=== PATIENT | male | born 1960 | race Caucasian/White ===

== ENCOUNTER 2018-04-25 12:14 | Outpatient (CLI) | payer OTHER, SELFPAY ==
--- NOTE | 2018-04-25 12:31 | DI.RAD_ITS ---
SYMPTOM/DIAGNOSIS: PERSISTENT COUGH, R05, BLACK SPUTUM PA AND LATERAL CHEST: Comparison is made with 06/14/15 and 03/30/15. Heart size and pulmonary vasculature are within normal limits. The lungs are clear. The bones are intact. There are again seen surgical clips in the left axilla. IMPRESSION: No acute pulmonary process.
== END 2018-04-25 12:34 ==
PROVIDERS: PCP Internal Medicine; Visit Provider Nurse Practitioner Family
DX: R05 Cough (principal); R09.3 Abnormal sputum
CPT/HCPCS: 71046

== ENCOUNTER 2018-07-04 10:52 | Outpatient (REF) | payer OTHER, SELFPAY ==
[2018-07-04 12:19] LABS: HCT 42.5 % (40.0-50.0); HGB 14.6 g/dL (13.5-17.5); Mean Corp. HGB Concentration 34.4 g/dL (32.0-36.0); Mean Corpuscular Hemoglobin 31.8 pg (27.0-33.0); Mean Corpuscular Volume 92.6 fL (80-95); Mean Platelet Volume 10.9 fL (8.0-11.0); Platelet Count 215 x1000/uL (130-400); RBC 4.59 m/cumm (4.50-6.00); White Blood Cell Count 8.88 k/cumm (4.4-10.8)
[2018-07-04 12:47] LABS: NT-proBNP 5 pg/mL
== END 2018-07-04 11:12 ==
LOC: NCHCN 10:52
PROVIDERS: PCP Internal Medicine; Visit Provider Nurse Practitioner Family
DX: R05 Cough (principal)
CPT/HCPCS: 85027; 83880

== ENCOUNTER 2018-10-03 10:57 | Outpatient (CLI) | payer OTHER, SELFPAY ==
--- NOTE | 2018-10-03 10:55 | DI.RAD_ITS ---
SYMPTOMS/DIAGNOSIS: LT THUMB MASS LEFT THUMB: Soft tissue swelling is noted over the proximal portion of the thumb. An area of soft tissue calcification is noted adjacent to the proximal metaphysis of the distal phalanx and may be related to old trauma. There is no evidence of an acute facture or dislocation. Mild degenerative changes involving the interphalangeal joint are noted as well.
== END 2018-10-03 11:17 ==
PROVIDERS: PCP Internal Medicine; Visit Provider Physician Assistant
DX: M79.645 Pain in left finger(s) (principal); M79.89 Other specified soft tissue disorders; M19.042 Primary osteoarthritis, left hand
CPT/HCPCS: 73140

== ENCOUNTER 2018-11-13 10:05 | Day surgery (SDC) | payer OTHER, SELFPAY ==
[2018-11-13 10:24] VITALS: BP 131/76; PULSE 79; RESP 16; TEMP 36.5; O2SAT 98
--- NOTE | 2018-11-13 12:31 | W.PM.DSUDISC ---
Discharge Plan Disposition Patient Disposition: HOME Condition: Good Discharge Details Reason For Visit: Left Thumb Cyst Attending Provider: Guillermo Garcia Primary Care Provider: Shyam Crespo Meds and New Rx's Prescriptions: New acetaminophen 500 mg tablet 1,000 mg PO Q8H PRN (Reason: pain) Qty: 60 RF: 3 ibuprofen 600 mg tablet 600 mg PO TID PRNQty: 60 RF: 3 Continued citalopram 20 MG tablet 20 mg PO DAILY RF: 0 albuterol sulfate [ProAir HFA] 8.5 GM HFA aerosol inhaler 2 puff Inhalation Q4H PRN PRNQty: 1 RF: 0 (DME) Aerogear Action Asthma Kit 1 EACH kit 1 ea Miscellaneous Q4H WHILE AWAKE Qty: 1 RF: 0 Discontinued ibuprofen 800 MG tablet 800 mg PO TID Qty: 30 RF: 0 Discharge Instructions Additional Instructions: Activity: You may use your fingers for light activity but avoid overusing the left thumb. You should limit any excessive motion or forceful gripping until the sutures have been removed. Dressings: You should keep the initial surgical dressing in place for at least 2-3 days. You may remove your dressings and get the wound wet after 2 days. You should keep the dressings and the wound clean at all times. You may replace the dressing with bandaid. Medications: - You should take Tylenol and Ibuprofen around the clock as prescribed or per netbackup engineer's recommendations. Follow-up: 7-10 days for wound check and suture removal. Referrals: Guillermo Garcia MD [ [facility] STAFF PHYSICIAN] - Activity:: Elevate Remove Dressings/Wound Care:: 48 hours Shower/Bathe:: 48 hours Diet:: As Tolerated Discharge Orders Discharge Orders: Discharge Order (Routine); Ordered 11/13/18 Ordered By: Guillermo Garcia DS: Diagnosis Discharge Diagnosis (1) Subcutaneous mass of left thumb: Status: Chronic
[2018-11-13] MEDS: Lidocaine 1% Pres-Free 5 ML VIAL (13:05)
--- NOTE | 2018-11-14 05:21 | W.PM.OP ---
Date of service: 11/13/18 Time of Service: 12:21 Operative Note DATE OF PROCEDURE: 11/13/18 PRE-OP DIAGNOSIS: Left thumb mass POST-OP DIAGNOSIS: other (Left thumb cyst) PROCEDURE: Excision of left thumb cyst SURGEON: Guillermo Garcia ANESTHESIA: local PATHOLOGY: none sent COMPLICATIONS: None Patient was transported to: same day Patient's condition: stable Indications: I have seen Kody in clinic for symptoms of a likely thumb cyst. The symptoms had not responded to conservative measures. I discussed excision with the patient. I reviewed the risks of the procedure to include, but not limited to, bleeding, infection, pain, stiffness, damage to nerves or vessels, recurrence. Despite these risks, the patient elected to proceed. Findings: There is a small cystic structure seen overlying the DIP joint of the left thumb. The cyst sac was removed and the arthrotomy was performed. Procedure Description: Timmy was greeted in the preoperative holding area where the correct side was identified and marked. The consent was reviewed with the patient and signed. All questions were answered. Kody was taken back to the operating room. The patient was placed into the supine position on the operating room table with the left arm on an arm board. All bony prominences were well padded. No prophylactic antibiotics were administered since this was a clean, elective hand surgical case. The left arm was then prepped with Chloraprep and draped in a standard fashion with stockinette and extremity drape. A timeout to confirm correct identity, side and site, procedure, allergies, anesthesia, and medical concerns was performed. The surgical site was marked as a longitudinal incision directly over the cyst of the left thumb, dorsal radial aspect of the DIP joint. A digital block was then performed with 1% Lidocaine. The patient tolerated this well and once the anesthetic had setup, the procedure began. A longitudinal incision was made through skin only, approximately 1cm. The deep tissues were dissected bluntly. There is notable thickening around this area. The area of prominence was identified and the deeper tissues were dissected sharply to expose the cystic structure. It ruptured fairly early and the cyst sac was identified and removed and whole. This was in direct communication with the radial aspect of the DIP joint. Capsule around the DIP joint was then opened. There was notable soft tissue thickening around the joint itself. There is also some prominence of the distal phalanx of middle phalanx in this area. A rondure was used to remove any soft tissue thickening. The wound was then irrigated and the skin was closed with a 4-0 Nylon. This was dressed with gauze and a Conform dressing. The patient tolerated the procedure well and was returned to the Same Day Surgery area in a stable condition suffering no known complication.
== END 2018-11-13 13:03 | disposition home or self-care (01) ==
PROVIDERS: PCP Internal Medicine; Visit Provider Student in an Organized Health Care Education/Training Program
PROC: (CPT 26160; principal; 2018-11-13 11:45)
DX: R22.32 Localized swelling, mass and lump, left upper limb (principal); M25.842 Other specified joint disorders, left hand
CPT/HCPCS: 26160

== ENCOUNTER 2020-02-06 12:34 | Outpatient (REF) | payer OTHER, SELFPAY ==
[2020-02-06 21:02] LABS: Calculated LDL 113 mg/dL (<100); Cholesterol 192 mg/dL (<200); HDL Cholesterol 61 mg/dL (40-60); Triglyceride 92 mg/dL (<150)
== END 2020-02-06 12:54 ==
LOC: NCHCN 12:34
PROVIDERS: PCP Internal Medicine; Visit Provider Internal Medicine
DX: Z00.00 Encounter for general adult medical examination without abnormal findings (principal); E66.3 Overweight
CPT/HCPCS: 80061

== ENCOUNTER 2020-07-17 11:02 | Outpatient (CLI) | payer OTHER, SELFPAY ==
--- NOTE | 2020-07-17 09:45 | DI.RAD_ITS ---
EXAM: XR THUMB LT CLINICAL HISTORY: left thumb cyst TECHNIQUE: COMPARISON: CR XR thumb LT from 10/03/2018 FINDINGS: Three views were obtained. Calcific or ossific densities are again noted adjacent to the radial aspe ct of the base of the distal phalanx of the thumb and are more prominent than on prior examination of October 03, 2018. Cartilaginous joint spaces appear fairly well maintained. Mild to moderate marginal osteophytes noted most marked at the IP joint but also to a lesser degree involving the 1st MCP join t. IMPRESSION: Degenerative changes as described above. RADIATION DOSE DELIVERED: Total DLP
== END 2020-07-17 11:03 | disposition home or self-care (01) ==
LOC: DIORS 11:03
PROVIDERS: PCP Internal Medicine; Referring Provider Internal Medicine; Visit Provider Physician Assistant
DX: M18.12 Unilateral primary osteoarthritis of first carpometacarpal joint, left hand (principal)
CPT/HCPCS: 73140

== ENCOUNTER 2020-07-17 12:00 | Outpatient (REF) | payer OTHER, SELFPAY ==
[2020-07-17 20:02] LABS: Anion Gap 8.5 mmol/L (3-11); BUN 14 mg/dL (7-18); CO2 27.5 mmol/L (21.0-32.0); CREATININE 0.9 mg/dL (0.70-1.30); Chloride 105 mmol/L (98-107); Glucose 96 mg/dL (74-106); Potassium 4.6 mmol/L (3.5-5.1); Sodium 141 mmol/L (136-145)
== END 2020-07-17 12:01 | disposition home or self-care (01) ==
LOC: NCHCN 12:00
PROVIDERS: PCP Internal Medicine; Visit Provider Internal Medicine
DX: I10 Essential (primary) hypertension (principal)
CPT/HCPCS: 80048

== ENCOUNTER 2020-07-23 18:27 | Outpatient (REF) | payer OTHER, SELFPAY ==
[2020-07-23 17:45] LABS: Bilirubin Negative (Negative); Blood Negative (Negative); Clarity Clear (Clear); Glucose Negative (Negative); Ketones Negative (Negative); Leukocyte Esterase Negative (Negative); Nitrite Negative (Negative); Specific Gravity >= 1.030 (1.005-1.025); Urobilinogen 0.2 EU/dL (Up TO 0.2); pH 6.5 (5-8)
== END 2020-07-23 18:28 | disposition home or self-care (01) ==
LOC: NCHCN 18:27
PROVIDERS: PCP Internal Medicine; Referring Provider Internal Medicine; Visit Provider Internal Medicine
DX: I10 Essential (primary) hypertension (principal)
CPT/HCPCS: 81003

== ENCOUNTER 2020-07-29 08:53 | Day surgery (SDC) | payer OTHER, SELFPAY ==
[2020-07-29 09:30] VITALS: BP 149/102; PULSE 76; RESP 16; TEMP 36.4; O2SAT 96
--- NOTE | 2020-07-29 09:52 | W.PM.DSUDISC ---
Documented by User: YASH Herron 07/29/20 10:02 Discharge Plan Disposition Patient Disposition: HOME Condition: Good Discharge Details Reason For Visit: Left Thumb Distal Phalanx Ostectomy Attending Provider: Guillermo Garcia Primary Care Provider: Shyam Crespo Home Meds and New Rx's Prescriptions: New hydrocodone-acetaminophen 5-325 mg tablet 1 tab PO Q6H PRNQty: 5 RF: 0 Continued citalopram 20 MG tablet 20 mg PO DAILY RF: 0 albuterol sulfate [ProAir HFA] 8.5 GM HFA aerosol inhaler 2 puff Inhalation Q4H PRN PRNQty: 1 RF: 0 (DME) [employer] Action Asthma Kit 1 EACH kit 1 ea Miscellaneous Q4H WHILE AWAKE Qty: 1 RF: 0 acetaminophen 500 mg tablet 1,000 mg PO Q8H PRN (Reason: pain) Qty: 60 RF: 3 ibuprofen 600 mg tablet 600 mg PO TID PRNQty: 60 RF: 3 Discharge Instructions Additional Instructions: Discharge Instructions Activity: You should keep the hand/wrist elevated as much as possible for the first few days. You may use the other fingers as tolerated but avoid trying to do too much too soon. You may perform light activities with thumb but try not to do too much too soon. Dressing/Cast: Your initial dressing should stay on for 2 days. During this time, pleae keep it clean and dry. After 48 hours you may remove the dressing, cover with a bandaid and get it wet/shower as needed. Medications: - You should take Tylenol and Ibuprofen for baseline pain control. These have been called into the pharmacy. - You have been prescribed a stronger pain medication, Hydrocodone, for breakthrough pain. You do not have to fill this but it is at the pharmacy in case you need it. - You may apply ice over the thumb, just double bag so it doesn't get wet. Follow-up: 7-10 days Referrals: Guillermo Garcia MD [ [facility] STAFF PHYSICIAN] - Equipment/Supplies: Splint Activity:: Activity as Tolerated Remove Dressings/Wound Care:: 48 hours Shower/Bathe:: 48 hours Diet:: As Tolerated Discharge Orders Discharge Orders: Discharge Order (Routine); Ordered 07/29/20 Ordered By: Megan Montoya DS: Diagnosis Discharge Diagnosis (1) Subcutaneous mass of left thumb: Status: Chronic (2) Osteophyte, left hand: Status: Acute Documented by User: Guillermo Garcia MD 07/29/20 10:13 Discharge Plan Disposition Patient Disposition: HOME Condition: Good Discharge Details Reason For Visit: Left Thumb Distal Phalanx Ostectomy Attending Provider: Guillermo Garcia Primary Care Provider: Shyam Crespo Home Meds and New Rx's Prescriptions: New hydrocodone-acetaminophen 5-325 mg tablet 1 tab PO Q6H PRNQty: 5 RF: 0 Continued citalopram 20 MG tablet 20 mg PO DAILY RF: 0 albuterol sulfate [ProAir HFA] 8.5 GM HFA aerosol inhaler 2 puff Inhalation Q4H PRN PRNQty: 1 RF: 0 (DME) [employer] Action Asthma Kit 1 EACH kit 1 ea Miscellaneous Q4H WHILE AWAKE Qty: 1 RF: 0 acetaminophen 500 mg tablet 1,000 mg PO Q8H PRN (Reason: pain) Qty: 60 RF: 3 ibuprofen 600 mg tablet 600 mg PO TID PRNQty: 60 RF: 3 Discharge Instructions Additional Instructions: Discharge Instructions Activity: You should keep the hand/wrist elevated as much as possible for the first few days. You may use the other fingers as tolerated but avoid trying to do too much too soon. You may perform light activities with thumb but try not to do too much too soon. Dressing/Cast: Your initial dressing should stay on for 2 days. During this time, pleae keep it clean and dry. After 48 hours you may remove the dressing, cover with a bandaid and get it wet/shower as needed. Medications: - You should take Tylenol and Ibuprofen for baseline pain control. These have been called into the pharmacy. - You have been prescribed a stronger pain medication, Hydrocodone, for breakthrough pain. You do not have to fill this but it is at the pharmacy in case you need it. - You may apply ice over the thumb, just double bag so it doesn't get wet. Follow-up: 7-10 days Referrals: Guillermo Garcia MD [ [facility] STAFF PHYSICIAN] - Equipment/Supplies: Splint Activity:: Activity as Tolerated Remove Dressings/Wound Care:: 48 hours Shower/Bathe:: 48 hours Diet:: As Tolerated Discharge Orders Discharge Orders: Discharge Order (Routine); Ordered 07/29/20 Ordered By: Megan Montoya
--- NOTE | 2020-07-29 10:00 | DI.RAD_ITS ---
EXAM: XR THUMB LT CLINICAL HISTORY: subcutaneous mass left thumb. TECHNIQUE: 2D digital imaging was performed. COMPARISON: No exams were available for comparison FINDINGS: Prosperous provided during left thumb procedure. Total fluoroscopy time 12 seconds IMPRESSION: DATA REPOSITORY: RADIATION DOSE DELIVERED:
[2020-07-29] MEDS: Sodium Bicarbonate 50 MEQ/50 ML VIAL (10:35)
--- NOTE | 2020-07-29 12:27 | W.PM.OP ---
Date of service: 07/29/20 Time of Service: 11:27 Operative Note Operative Note DATE OF PROCEDURE: 07/29/20 PRE-OP DIAGNOSIS: Left Thumb Cyst and Osteophyte POST-OP DIAGNOSIS: same PROCEDURE: Excision of left thumb mucous cyst and ostectomy from proximal and distal phalanges SURGEON: Guillermo Garcia NUCLEAR OPERATOR: Megan Montoya ANESTHESIA TYPE: Local By Surgeon Refer to Anesthesia Record ESTIMATED BLOOD LOSS: 5 PATHOLOGY: none sent TOURNIQUET TIME: 0 COMPLICATIONS: None Patient was transported to: same day Patient's condition: stable Indications: Kody is a 60-year-old who had a previous mucous cyst of the left thumb DIP joint. This returned with a notable prominence over the past months to year. X-rays performed at his clinic visit showed a large osteophyte of the distal phalanx as well as the proximal phalanx. There also was felt to be a small cyst. Given the prominence of this area and his pain, I recommended excision with ostectomy. I reviewed the risk of the procedure to include bleeding, infection, pain, stiffness, recurrence. Spite these risk, he elects to proceed. Findings: There were large osteophytes seen from the base of the distal phalanx and smaller around the end of the proximal phalanx. These were removed sharply. There is also a small mucous cyst at the level of the DIP joint. Procedure Description: Kody was greeted in the preoperative holding area. His identity was confirmed the correct side was identified and marked. The consent was reviewed the patient and signed. He was then taken back to the operating room. He is placed in supine position with the left hand placed on a hand table. The left hand was prepped with ChloraPrep and draped in a standard fashion. A timeout was performed for safe surgery. A longitudinal incision was made overlying the radial aspect of the thumb DIP joint. The incision was taken out sharply through the skin. Immediately, a small mucous cyst was encountered. There is approximately 2 x 2 mm. It was removed and dissection is carried down to identify the capsule of the IP joint. Longitudinal incision of the capsule was made and this was subperiosteally elevated off of the bone spurs from the distal phalanx moving both dorsally and ulnarly as well as radially. There is a large spur seen from the base of the distal phalanx. 1 of these was actually somewhat loose. These were removed with a rongeur. I continue to remove any bone spurs from the base of the distal phalanx. I then dissected around the end of the middle phalanx to remove any bone spurs in this area as well. Mini C-arm fluoroscopy was utilized to help guide resection to make sure that we had adequate resected the bone. The area of concern was significantly improved. There still was some irregularity to the DIP joint service. However, I do not want to proceed with dissection circumferentially around the thumb and focus primarily on this area of concern. I used a rasp to also smooth the edges down so there is a smooth contour to the DIP joint. The wound was then thoroughly irrigated. The joint capsule was left open and the skin was closed with a #4-0 nylon suture. Kody was able to extend the thumb without difficulty. The wound was then dressed with Xeroform, 4 x 4's, conform dressing. At the end the case all counts are correct. He is transferred back to the same-day surgery in stable condition.
== END 2020-07-29 11:19 | disposition home or self-care (01) ==
PROVIDERS: PCP Internal Medicine; Referring Provider Student in an Organized Health Care Education/Training Program; Visit Provider Student in an Organized Health Care Education/Training Program
PROC: (CPT 26951; principal; 2020-07-29 11:30)
DX: M25.742 Osteophyte, left hand (principal); L72.8 Other follicular cysts of the skin and subcutaneous tissue
CPT/HCPCS: 11420; 26210; 73140

== ENCOUNTER 2020-11-12 17:02 | Outpatient (REF) | payer OTHER, SELFPAY ==
[2020-11-12 21:22] LABS: Anion Gap 10.3 mmol/L (3-11); BUN 17 mg/dL (7-18); CO2 25.7 mmol/L (21.0-32.0); Calcium 9.2 mg/dL (8.5-10.1); Chloride 104 mmol/L (98-107); Glucose 120 mg/dL (74-106); Potassium 3.7 mmol/L (3.5-5.1); Sodium 140 mmol/L (136-145)
== END 2020-11-12 17:03 | disposition home or self-care (01) ==
LOC: NCHCN 17:02
PROVIDERS: PCP Internal Medicine; Visit Provider Internal Medicine
DX: I10 Essential (primary) hypertension (principal)
CPT/HCPCS: 80048

== ENCOUNTER 2020-12-03 01:12 | Outpatient (CLI) | payer OTHER, SELFPAY ==
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
== END 2020-12-03 01:32 ==
PROVIDERS: PCP Internal Medicine; Visit Provider Family Medicine
DX: M79.604 Pain in right leg (principal); M89.8X6 Other specified disorders of bone, lower leg; Z87.81 Personal history of (healed) traumatic fracture; Z96.698 Presence of other orthopedic joint implants
CPT/HCPCS: 73590

== ENCOUNTER 2020-12-10 12:04 | Outpatient (CLI) | payer OTHER, SELFPAY ==
--- NOTE | 2020-12-10 11:45 | DI.RAD_ITS ---
Exam(s) XR ANKLE RT COMPLETE EXAM: XR ANKLE RT COMPLETE CLINICAL HISTORY: RIGHT ANKLE PAIN. TECHNIQUE: 2D digital imaging was performed. COMPARISON: CR XR TIB/FIB RT from 12/03/2020 CR XR TIB/FIB RT from 12/03/2020 FINDINGS: There is a long intramedullary mary in the tibia which extends down to the distal metaphysis level. T his transfixes a fracture site of the tibia which is above the level of the field of view of this ank le study. No radiographic evidence of osteomyelitis. There is a healed fracture site at the junctio n of the mid and distal thirds of the fibula. Moderate degenerative changes are noted in the tibiota lar-ankle joint. Talar dome appears intact. Subtalar joint appears unremarkable as does the calcane ocuboid joint. Some degenerative changes are noted of the dorsal aspect of the talonavicular joint. IMPRESSION: DATA REPOSITORY: RADIATION DOSE DELIVERED:
== END 2020-12-10 12:05 | disposition home or self-care (01) ==
LOC: DIORS 12:04
PROVIDERS: PCP Internal Medicine; Referring Provider Internal Medicine; Visit Provider Student in an Organized Health Care Education/Training Program
DX: M25.571 Pain in right ankle and joints of right foot (principal)
CPT/HCPCS: 73610

== ENCOUNTER 2021-03-08 09:45 | Outpatient (CLI) | payer OTHER, SELFPAY ==
--- NOTE | 2021-03-08 09:30 | DI.RAD_ITS ---
Exam(s) XR KNEE LT 3V AP,LAT,KAVIN EXAM: XR KNEE LT 3V AP,LAT,KAVIN CLINICAL HISTORY: left knee pain. TECHNIQUE: 2D digital imaging was performed. COMPARISON: No exams were available for comparison FINDINGS: BONES: No acute fracture is present. No bony destructive lesion is seen. Small enthesophyte superi or pole patella. JOINTS: Moderate narrowing medial femoral tibial joint with periarticular spurring.. Minimal spurrin g at the articular aspect of the patella. No joint effusion is seen. SOFT TISSUE: Surgical clips posterior upper calf. IMPRESSION: Moderate degenerative changes of the medial femoral tibial joint. DATA REPOSITORY: RADIATION DOSE DELIVERED:
== END 2021-03-08 09:46 | disposition home or self-care (01) ==
LOC: DIORS 09:45
PROVIDERS: PCP Internal Medicine; Referring Provider Internal Medicine; Visit Provider Physician Assistant
DX: M25.562 Pain in left knee (principal)
CPT/HCPCS: 73562

== ENCOUNTER 2021-08-22 19:50 | Emergency (ER) | payer OTHER, SELFPAY ==
[2021-08-22 20:00] VITALS: BP 149/97; PULSE 68; RESP 19; TEMP 36.4; O2SAT 98
[2021-08-22 20:14] VITALS: RESP 19
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
[2021-08-22 20:23] VITALS: PULSE 65; RESP 1; RESP 18; O2SAT 98
[2021-08-22] MEDS: Dexamethasone 10 MG/ML VIAL IVP (20:23)
[2021-08-22] MEDS: Albuterol/Ipratropium 3 ML UPD VIAL 9 ML UPD (20:23)
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
[2021-08-22 21:35] VITALS: BP 141/78; PULSE 61; RESP 18; O2SAT 99
[2021-08-24 14:32] LABS: COVID-19 RT-PCR UVMMC Result Positive (Negative)
--- NOTE | 2021-08-24 14:37 | W.ED.FU ---
Date of service: 08/24/21 Time of Service: 14:37 Follow Up Plan: Left message for patient regarding positive COVID test
== END 2021-08-22 21:32 | disposition home or self-care (01) ==
PROVIDERS: Emergency Provider Emergency Medicine; PCP Internal Medicine
DX: U07.1 COVID-19 (principal); J45.998 Other asthma; Z20.822 Contact with and (suspected) exposure to COVID-19; R05.1 Acute cough; X03.8XXA Other exposure to controlled fire, not in building or structure, initial encounter
CPT/HCPCS: 94640; 96374; 99283; U0003; 71045; J1100; J7620

== ENCOUNTER 2021-09-18 10:54 | Emergency (ER) | payer OTHER, SELFPAY ==
[2021-09-18 10:59] VITALS: BP 145/83; PULSE 81; RESP 18; TEMP 37.1; O2SAT 96
--- NOTE | 2021-09-18 11:00 | DI.RAD_ITS ---
Exam(s) XR HAND LT COMPLETE EXAM: XR HAND LT COMPLETE CLINICAL HISTORY: pain puncture wound. TECHNIQUE: 2D digital imaging was performed. COMPARISON: CR XR THUMB LT from 07/17/2020 FINDINGS: 3 views No evidence of acute fracture nor dislocation. Degenerative changes again noted at the interphalange al joint of the thumb. IMPRESSION: No acute osseous findings in the left hand DATA REPOSITORY: RADIATION DOSE DELIVERED:
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
--- NOTE | 2021-09-18 11:53 | DI.VRAD_ITS ---
PROCEDURE INFORMATION: Exam: XR Left Hand Exam date and time: 09/18/2021 11:34 AM Age: 61 years old Clinical indication: Pain; Hand; Left; Patient HX: Puncture wound TECHNIQUE: Imaging protocol: XR Left hand. Views: 3 or more views. COMPARISON: CR XR THUMB LT 07/17/2020 FINDINGS: Bones/joints: No acute fracture or dislocation. Mild arthritic changes at 1st MCP and multiple interphalangeal joints. Soft tissues: No obvious soft tissue injury or gas. IMPRESSION: No obvious soft tissue injury. No acute osseous injury. Dictated and Authenticated by: Ashlyn Vaughn MD. Ordering:ELVIRA Pringle MD
[2021-09-18] MEDS: Cephalexin 500 MG CAP PO (11:56)
[2021-09-18] MEDS: Acetaminophen 500 MG TAB 1000 MG PO (11:56)
== END 2021-09-18 12:07 | disposition home or self-care (01) ==
PROVIDERS: Emergency Provider Emergency Medicine; PCP Internal Medicine
DX: S61.432A Puncture wound without foreign body of left hand, initial encounter (principal); W29.8XXA Contact with other powered hand tools and household machinery, initial encounter
CPT/HCPCS: 90471; 99284; 73130; 99283

== ENCOUNTER 2021-11-19 17:25 | Outpatient (REF) | payer OTHER, SELFPAY ==
[2021-11-19 20:39] LABS: ALT 30 U/L (16-63); AST 21 U/L (15-37); Albumin 3.9 g/dL (3.4-5.0); Alkaline Phosphatase 87 U/L (46-116); Anion Gap 7.2 mmol/L (3-11); BUN 20 mg/dL (7-18); Bilirubin, Total 0.5 mg/dL (0.2-1.0); CO2 26.8 mmol/L (21.0-32.0); Calcium 8.9 mg/dL (8.5-10.1); Chloride 106 mmol/L (98-107); Glucose 112 mg/dL (74-106); Potassium 3.9 mmol/L (3.5-5.1); Sodium 140 mmol/L (136-145); Total Protein 7.7 g/dL (6.4-8.2)
== END 2021-11-19 17:26 | disposition home or self-care (01) ==
LOC: NCHCN 17:25
PROVIDERS: PCP Internal Medicine; Visit Provider Family Medicine
DX: R07.9 Chest pain, unspecified (principal)
CPT/HCPCS: 80053; 85025

== ENCOUNTER 2021-11-26 15:00 | Outpatient (REF) | payer OTHER, SELFPAY ==
[2021-11-26 15:33] LABS: HCT 40.6 % (40.0-50.0); HGB 14.2 g/dL (13.5-17.5); MCH 32.6 pg (27.0-33.0); MCV 93 fL (80-95); Platelet Count 209 10^3/uL (130-400); RBC 4.36 10^6/uL (4.36-5.78); RDW 12.3 % (11.8-14.1); RDW-SD 42.4 fL; WBC 7.79 10^3/uL (4.4-10.8)
== END 2021-11-26 15:01 | disposition home or self-care (01) ==
LOC: NCHCN 15:00
PROVIDERS: PCP Internal Medicine; Visit Provider Family Medicine
DX: I10 Essential (primary) hypertension (principal); R07.9 Chest pain, unspecified
CPT/HCPCS: 85027

== ENCOUNTER 2022-04-21 18:50 | Emergency (ER) | payer OTHER, SELFPAY ==
[2022-04-21 19:09] VITALS: PULSE 110; RESP 16; TEMP 37.1; O2SAT 98
[2022-04-21 20:06] LABS: COVID-19 PCR Negative (Negative); Influenza A PCR Negative (Negative); Influenza B PCR Negative (Negative); RSV PCR Negative (Negative)
[2022-04-21 20:07] LABS: Source Nasopharynx
--- NOTE | 2022-04-21 20:15 | DI.RAD_ITS ---
Exam(s) XR CHEST 2V PA LATERAL EXAM: XR CHEST 2V PA LATERAL CLINICAL HISTORY: short of breath TECHNIQUE: 2D digital imaging was performed. COMPARISON: CR,XR XR PORTABLE CHEST AP from 08/22/2021 FINDINGS: HEART: Normal size. Aorta: Not dilated. PULMONARY VASCULATURE: Normal. LUNGS: Clear. PLEURAL SPACE: No pleural effusion or pneumothorax. BONE:Unremarkable for age. Soft tissues: Multiple surgical clips noted over the left axilla and lateral chest. IMPRESSION: No acute abnormality. DATA REPOSITORY: RADIATION DOSE DELIVERED:
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
--- NOTE | 2022-04-21 21:03 | DI.VRAD_ITS ---
PROCEDURE INFORMATION: Exam: XR Chest Exam date and time: 04/21/2022 8:25 PM Age: 61 years old Clinical indication: Shortness of breath TECHNIQUE: Imaging protocol: Radiologic exam of the chest. Views: 2 views. COMPARISON: XR PORTABLE CHEST AP 08/22/2021 8:42 PM FINDINGS: Lungs: Unremarkable. No consolidation. Pleural spaces: Unremarkable. No pleural effusion. No pneumothorax. Heart/Mediastinum: Mildly tortuous aorta. No cardiomegaly. Bones/joints: Unremarkable. Surgical clips in the left axilla IMPRESSION: No acute findings. Dictated and Authenticated by: Trev Sandoval MD. Ordering:MICHAEL Castellon MD
[2022-04-21 21:05] VITALS: BP 143/95; PULSE 78; RESP 16; O2SAT 98
== END 2022-04-21 21:04 | disposition home or self-care (01) ==
PROVIDERS: Emergency Provider Student in an Organized Health Care Education/Training Program; PCP Family Medicine
DX: B34.9 Viral infection, unspecified (principal); R00.0 Tachycardia, unspecified; J45.909 Unspecified asthma, uncomplicated; Z79.899 Other long term (current) drug therapy; Z20.822 Contact with and (suspected) exposure to COVID-19
CPT/HCPCS: 87637; 99283; 71046; 99282

== ENCOUNTER 2022-08-24 17:25 | Outpatient (REF) | payer OTHER, SELFPAY ==
[2022-08-24 21:27] LABS: Anion Gap 11.8 mmol/L (3-11); BUN 17 mg/dL (7-18); CO2 25.2 mmol/L (21.0-32.0); Calcium 9.3 mg/dL (8.5-10.1); Chloride 101 mmol/L (98-107); Estimated GFR 84.05 (mL/min/1.73m2); Glucose 81 mg/dL (74-106); Sodium 138 mmol/L (136-145)
== END 2022-08-24 17:26 | disposition home or self-care (01) ==
LOC: NCHCN 17:25
PROVIDERS: PCP Family Medicine; Visit Provider Family Medicine
DX: Z00.00 Encounter for general adult medical examination without abnormal findings (principal); I10 Essential (primary) hypertension
CPT/HCPCS: 80048

== ENCOUNTER → 2023-11-01 02:31 | Outpatient (CLI) | payer OTHER, SELFPAY ==
--- OUTSIDE RECORDS SUMMARY | 2023-10-30 02:09 | XMS_ITS | Encounter Summary ---
Author Organization [facility] Address [facility] [place] [address] Care Team Providers Care Automatic Blocker Name Role Phone Shyam Crespo MD Primary Care Provider [phone] Encounter Details Date Type Department Care Team (Late st Contact Info) Description 10/11/2019 1:30 PM EDT TH Visit (TeleHealth) Plastic Surgery at [facility] [place] [address] Malia Monroe MD [facility] [place] [address] Surgery follow-up Social History Tobacco Use Types Packs/Day Years Used Date Smoking Tobacco: Former Smokeless Tobacco: Never Sex and Gender Information Value Date Recorded Sex Assigned at Not on file Gender Identity Not on file Sexual Orientation Not on file documented as of this encounter Progress Notes * Malia Monroe MD - 10/11/2019 1:30 PM EDT Plastic Surgery Telephone Follow-up Note Malia Monroe MD. This visit was a telephone encounter as the telehealth interface wasn't functioning correctly at the time of his scheduled visit Reason for visit: F/U status post procedure Date of surgery: 09/12/19 Procedure(s): repair laceration of L 5th digit Complications: None reported HPI: Pt states he is doing well overall. He states his skin incisions are healing well. He has somenew skin growth over his initial injury site. He states he still his some swelling in his finger, but it is improved from his last visit. He is working on ROM at home and notices improvement. He is eager to return to work. Examination: Deferred as this was a telephone encounter Impression: Kody Carr is a 59 y.o. male who was seen today for follow-up after the above procedure. Please see the operative note for details. He is doing well without complaints and slowly progressing Plan: Follow up: prn Letter faxed to his workplace to return to work Friday 10/13 D/w patient following up with any concerns or to call us if he would like to initiate hand therapy I, Allison Heath, have performed the documentation for this encounter in the presence of and acting as a scribe for MALIA MONROE. I performed the services which were documented by the scribe, and I agree with the accuracy of the documentation in this encounter. Malia Monroe MD documented in this encounter Plan of Treatment Not on file documented as of this encounter Visit Diagnoses Diagnosis Surgery follow-up Follow-up examination, following unspecified surgery documented in this encounter Care Teams Automatic Blocker Relationship Specialty Start Date End Date Shyam Crespo MD [address] [place] [id number] PCP - General Internal Medicine 09/06/19 documented as of this encounter
--- OUTSIDE RECORDS SUMMARY | 2023-10-30 02:09 | XMS_ITS | Referral Summary ---
Author Organization [facility] Address [address] [place] [address] Care Team Providers Care Cdl Service Technician Name Role Phone Shyam Crespo MD Primary Care Provider [phone] Social History Tobacco Use Types Packs/Day Years Used Date Smoking Tobacco: Never Assessed Interpersonal Safety Answer Date Record ed Physically Hurt Never 11/18/2019 Verbally Threaten Not on file 11/18/2019 Sex and Gender Information Value Date Recorded Sex Assigned at Not on file Gender Identity Not on file Sexual Orientation Not on file Plan of Treatment Not on file Care Teams Cdl Service Technician Relationship Specialty Start Date End Date Shyam Crespo MD [address] [place], [place] [id number] PCP - General 11/21/16
--- OUTSIDE RECORDS SUMMARY | 2023-10-30 02:09 | XMS_ITS | Encounter Summary ---
Author Organization [facility] Address [address] [place] [address] Care Team Providers Care Building Economist Name Role Phone Shyam Crespo MD Primary Care Provider [phone] Encounter Details Date Type Department Care Team (Late st Contact Info) Description 08/23/2021 Lab Requisition [facility] Pathology & Laboratory Medicine - [address] [address] Outr Resulting Lab, Provider Social History Tobacco Use Types Packs/Day Years Used Date Smoking Tobacco: Never Assessed Interpersonal Safety Answer Date Record ed Physically Hurt Never 11/18/2019 Verbally Threaten Not on file 11/18/2019 Sex and Gender Information Value Date Recorded Sex Assigned at Not on file Gender Identity Not on file Sexual Orientation Not on file documented as of this encounter Plan of Treatment Not on file documented as of this encounter Procedures Procedure Name Priority Date/Time Associated Diagnosis Comments ZZCOVID-19 TEST [facility] PCR Today 08/22/2021 20:19 EDT COVID-19 TESTING Routine 08/22/2021 20:1 9 EDT documented in this encounter Results * COVID-19 TEST [facility] PCR (08/22/2021 20:19 EDT) Swab 08/22/2021 20:1 9 EDT 08/23/2021 17:19 EDT Provider Outr Resulting Lab MICROBIOLOGY - GENERAL ORDERABLES [facility] [address] [place] [address] * (ABNORMAL) COVID-19 TESTING (08/22/2021 20:19 EDT) COVID-19 rt-PCR Result Positive( AA) Negative 08/24/2021 13:24 EDT [facility] Comment: This test has not been FDA cleared or approved. This test has been authorized by FDA under an EUA for use by authorized laboratories. This test has been authorized only for detection of nucleic acid from 2019-nCoV, not for any other viruses or pathogens. This test is only authorized for the duration of the declaration that circumstances exist justifying the authorization of emergency use of in vitro diagnostic tests for detection and/or diagnosis of 2019-nCoV under section 564(b)(1) of Act, 21 U.S.C ?? 360bbb-3(b) (1), unless the authorization is terminated or revoked sooner. Testing was performed using the venancio SARS-CoV-2 assay ([employer] on the Venancio 6800 System Performing Lab Venancio [address] [facility] 08/24/2021 13:24 EDT [facility] Swab 08/22/2021 20:1 9 EDT 08/23/2021 17:19 EDT Provider Outr Resulting Lab MICROBIOLOGY - GENERAL ORDERABLES [facility] [address] [place] [address] documented in this encounter Visit Diagnoses Not on filedocumented in this encounter Additional Health Concerns Infection Onset Date Last Indicated Resolved Time COVID-19 08/22/2021 08/22/2021 09/11/2021 22:1 5 EDT documented as of this encounter Care Teams Building Economist Relationship Specialty Start Date End Date Shyam Crespo MD [address] [place] [address] PCP - General 11/21/16 documented as of this encounter
--- OUTSIDE RECORDS SUMMARY | 2023-10-30 02:09 | XMS_ITS | Encounter Summary ---
Author Organization [facility] Address [facility] [place] [address] Care Team Providers Care Farm Equipment Maintenance Supervisor Name Role Phone None Primary Care Provider Unavailabl e Encounter Details Date Type Department Care Team (Late st Contact Info) Description 09/05/2019 8:40 AM EDT Ancillary Procedure Radiology Library at [facility] [address] Malia Denton MD [facility] [place] [address] Social History Tobacco Use Types Packs/Day Years Used Date Smoking Tobacco: Never Assessed Sex and Gender Information Value Date Recorded Sex Assigned at Not on file Gender Identity Not on file Sexual Orientation Not on file documented as of this encounter Plan of Treatment Not on file documented as of this encounter Procedures Procedure Name Priority Date/Time Associated Diagnosis Comments FILM LIBRARY STORAGE ONLY DX HAND Routine 09/05/2019 8:39 AM EDT documented in this encounter Results * Film Library- Storage Only DX Hand (09/05/2019 8:39 AM EDT) Narrative [facility] - 09/05/2019 8:39 AM EDT This exam is auto-finalizing. It's purpose is for storage only. Malia Denton MD IMG FILM LIBRARY ORD ERABLES [place], [place] documented in this encounter Visit Diagnoses Not on filedocumented in this encounter Care Teams Farm Equipment Maintenance Supervisor Relationship Specialty Start Date End Date None None PCP - General 09/05/19 09/05/19 documented as of this encounter
--- OUTSIDE RECORDS SUMMARY | 2023-10-30 02:09 | XMS_ITS | Encounter Summary ---
Author Organization [facility] Address [address] [place] [address] Care Team Providers Care Glue Jointer Operator Name Role Phone Shyam Crespo MD Primary Care Provider [phone] Encounter Details Date Type Department Care Team (Latest Contact Info) Description 08/30/2017 8:26 EDT - 08/30/2017 23:59 EDT Hospital Encounter [address] [address] Unknown, Provider, Discharge Disposition: Auto Discharge Social History Tobacco Use Types Packs/Day Years Used Date Smoking Tobacco: Never Assessed Sex and Gender Information Value Date Recorded Sex Assigned at Not on file Gender Identity Not on file Sexual Orientation Not on file documented as of this encounter Discharge Disposition Disposition Code Departure Means Destination Auto Discharge Home documented in this encounter Plan of Treatment Not on file documented as of this encounter Visit Diagnoses Not on filedocumented in this encounter Care Teams Glue Jointer Operator Relationship Specialty Start Date End Date Shyam Crespo MD [address] [place] [address] PCP - General 11/21/16 documented as of this encounter
--- OUTSIDE RECORDS SUMMARY | 2023-10-30 02:09 | XMS_ITS | Encounter Summary ---
Author Organization [facility] Address [address] [place] [address] Care Team Providers Care Ed Tech Name Role Phone Unknown, Provider Primary Care Provider [phone] Encounter Details Date Type Department Care Team (Late st Contact Info) Description 11/17/2016 Results Only [facility] [phone] Nilesh Pan, DO [address] [place] [address] Social History Tobacco Use Types Packs/Day Years Used Date Smoking Tobacco: Never Assessed Sex and Gender Information Value Date Recorded Sex Assigned at Not on file Gender Identity Not on file Sexual Orientation Not on file documented as of this encounter Plan of Treatment Not on file documented as of this encounter Procedures Procedure Name Priority Date/Time Associated Diagnosis Comments SURGICAL PATHOLOGY Routine 11/17/2016 10 :03 EDT documented in this encounter Results * SURGICAL PATHOLOGY (11/17/2016 10:03 EDT) Pathology Report: SURGICAL PATHOLOGY REPORT Reports generated via electronic interface contain original data; however they are lacking the format of the original report. Caution should be taken when reading/interpret ing unformatted reports. Name: ? KODY CARR ? Accession #: ? [id number] ? : ? 1960 (Age: 56) ??M ? Collect Date: ? 11/17/2016 ? Location: ? [facility] ? Receive Date: ? 11/18/2016 ? Provider: NILESH PAN DO Copy to: ANDREEA GATES MD ? Final Pathologic Diagnosis: SKIN OF BACK, EXCISION: - Follicular cyst, infundibular type. ? Microscopic Description: There is a dermal cyst that is lined by stratified squamous epithelium that matures through a granular layer. ??The cyst is filled with laminated orthokeratin. ??(Dr. Spears)/ljn Document reviewed and electronically signed by: BRIANDA SPEARS MD Report ??Date: 11/21/2016 18:36 By the signature above, the attending physician certifies that he/she has personally conducted a gross and/or microscopic examination of the described specimens and rendered or confirmed the above diagnosis. Specimen(s) Received: Neoplasm from back Clinical History: Neoplasm of uncertain behavior; clinical diagnosis code: D48.5 Gross Description: ? Received in formalin labelled with proper patient identification (initials B, P) and excision, neoplasm from back is an unoriented elliptical excision of park-white skin (2.5 x 1.2 cm and is excised to a depth of 1.3 cm). There is a central dome-shaped that measures 1.4 x 0.9 cm. The margins are inked blue. Sectioning reveals cystic structure that contains soft white material which measure 0.9 x 0.8 cm. The specimen is serially sectioned and entirely submitted as seven central sections in 1 through 4 and the two tips in 5, reverse en face. Meghna Emanuel 11/18/2016 12:00 PM End of Report [facility] 11/17/2016 10:0 3 EDT 11/18/2016 10:03 EDT Nilesh Pan DO PATHOLOGY ORDERABLES [facility] [address] [place] [address] documented in this encounter Visit Diagnoses Not on filedocumented in this encounter Care Teams Ed Tech Relationship Specialty Start Date End Date Unknown, Provider, PCP - General 11/18/16 11/20/16 documented as of this encounter
--- OUTSIDE RECORDS SUMMARY | 2023-10-30 02:09 | XMS_ITS | Encounter Summary ---
Author Organization [facility] [place] [address] Care Team Providers Care Catalyst Operator Gasoline Name Role Phone Shyam Crespo MD Primary Care Provider [phone] Reason for Visit * Reason Onset Date Comments TeleHealth 10/10/2019 Encounter Details Date Type Department Care Team (Late st Contact Info) Description 10/10/2019 [place] [id number] Tosha Mckeon LNA TeleHealth Social History Tobacco Use Types Packs/Day Years Used Date Smoking Tobacco: Former Smokeless Tobacco: Never Sex and Gender Information Value Date Recorded Sex Assigned at Not on file Gender Identity Not on file Sexual Orientation Not on file documented as of this encounter Miscellaneous Notes * Telephone Encounter - Tosha Mckeon LNA - 10/10/2019 11:15 AM EDT Unable to reach patient to review intake questions, med/allergies for upcoming tele health appointment with on 10/11/19. I left a message for patient to call back to update information. documented in this encounter Plan of Treatment Not on file documented as of this encounter Visit Diagnoses Not on filedocumented in this encounter Care Teams Catalyst Operator Gasoline Relationship Specialty Start Date End Date Shyam Crespo MD [address] [place] [address] PCP - General Internal Medicine 09/06/19 documented as of this encounter
--- OUTSIDE RECORDS SUMMARY | 2023-10-30 02:09 | XMS_ITS | Encounter Summary ---
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 Name Role Phone None Primary Care Provider Unavailabl e Reason for Visit * Reason Comments Finger Injury * Auth/Cert Specialty Diagnoses / Procedures Referred By Contac t Referred To Contact Diagnoses High-pressure injection injury of finger of left hand FINGER INJURY Procedures ER IPI Admit Referral ID Status Reason Start Date Expiration Date Visits Re quested Visits Authorized [id number] 1 1 Encounter Details Date Type Department Care Team (Late st Contact Info) Description 09/05/2019 12:54 PM EDT - 09/05/2019 2:22 PM EDT Surgery [place] [address] Malia Denton MD [facility] [address] [place]LAST[place] [address] DEBRIDEMENT SKIN AND SUBCU, UPPER EXTREMITY (WRVU 1.01) Social History Tobacco Use Types Packs/Day Years Used Date Smoking Tobacco: Never Assessed Sex and Gender Information Value Date Recorded Sex Assigned at Not on file Gender Identity Not on file Sexual Orientation Not on file documented as of this encounter Last Filed Vital Signs Vital Sign Reading Time Taken Comments Blood Pressure 165/97 09/05/2019 11:37 AM EDT Pulse 64 09/05/2019 11:37 AM EDT Temperature 36.8 ??C (98.2 ??F) 09/05/2019 11:37 AM E DT Respiratory Rate 16 09/05/2019 11:37 AM EDT Oxygen Saturation 100% 09/05/2019 11:37 AM EDT Inhaled Oxygen Concentration - - Weight 93 kg (205 lb) 09/05/2019 11:37 AM EDT Height - - Body Mass Index 29.84 09/05/2019 11:37 AM EDT documented in this encounter Discharge Summaries * Lisset Holt, SUPERVISOR COLOR MAKING - 09/06/2019 8:26 AM EDT Plastic Surgery Service Inpatient Discharge Summary Patient Name: Kody Carr Patient Age: 59 y.o. : 1960 Attending Physician: Malia Denton MD Date of Admission: 09/05/2019 Date of Discharge: Code Status: 09/06/2019 Full Code Primary Diagnosis: Active Hospital Problems Diagnosis ??? High-pressure injection injury of finger of left hand Resolved Hospital Problems No resolved problems to display. Incidental Findings: None. History: History obtained through patient interview, review of relevant records, and/or discussion with referring provider. Kody Carr ( ) is a 59 y.o. 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 He reports that initially the injury was like a bee st ing, but became progressively worse. This morning, patient noted increased swelling, erythema and ecchymosis.??He??presented to the??ED at an OSH??where he was found to have??a swollen left finger with ecchymosis, decreased range of motion, and reported erythema.??Xrays from OSH of the left hand were negative for fracture. [place] [facility] [place].??Patient??deniesnumbness, tingling, and weakness of the hand. No prior injuries or surgeries to the extremity. Right hand dominant. Past Medical History History reviewed. No pertinent past medical history. Past Surgical History History reviewed. No pertinent surgical history. Procedures: 09/05/2019 Surgeon(s) and Role: * Malia Denton MD - Primary * Jose Landis MD - Assisting Attending: Procedure(s): DEBRIDEMENT SKIN AND SUBCU, UPPER EXTREMITY (WRVU 1.01) INCISION & DRAINAGE, FINGER, COMPLICATED (WRVU 2.24) Hospital Course: Kody Carr was admitted to the Plastic Surgery Service on 09/05/2019 after undergoing I&D of left small finger for injection injury. He tolerated the operation well and there were no apparentcomplications. He was admitted post- operatively for observation and management. His hospital stay was uncomplicated. Kody Carr was tolerating regular diet, ambulating and voiding without difficulty, afebrile with stable vital signs, and his pain was well controlled on oral pain medications when he was deemed ready for discharge on 09/06/2019. Updated Allergies/ADRs: Allergies Allergen Reactions ??? Diatrizoic Acid CIS - URTICARIA+HIVES ??? Iodinated Contrast Media ??? Iodine And Iodide Containing Products Pending Lab Data at Discharge: none Condition at Discharge: Stable Important Studies and Lab Data: Labs: No results for input(s): WBC, HGB, HCT, PLATELET, PT, INR, PTT in the last 72 hours. Recent Labs 09/05/19 1711 NA 139 K 4.4 CL 104 CO2 23 BUN 11 CREATININE 0.86 GLUCOSE 106 CALCIUM 9.0 Microbiology: none Studies: None. Discharge Examination: Last value Range last 12 hrs Temperature Temp: 36.7 ??C (98.1 ??F) Temp: [36.7 ??C (98.1 ??F)] Heart Rate Heart Rate: 64 Heart Rate: -- Blood Pressure BP: (!) 129/93(RN aware, aware) BP: (120-129)/(85-93) Respiratory Rate Resp: 15 Resp: [15] SpO2 SpO2: 95 % SpO2: [95 %] General: Resting comfortably in no acute distress. Neuro: Awake, alert, responds to questions appropriately. Pulm: breathing unlabored. Left small finger: Neurovascularly intact.Radial side of finger with 2 x 0.5 cm dusky/blistered area. Incision clean, dry, intact. Serous drainage. Discharge to: Home Discharge Medications: The following medications have been prescribed for you. If you notice any adverse reactions to your medications, please contact your primary care physician immediately or go tothe nearest Emergency Department. Your Medications New Medications Dose Details amoxicillin-clavulanate 875-125 mg Tab Commonly known as: Augmentin Take 1 tablet by mouth 2 times daily for 7 days. 1 tablet Quantity: 14 tablet Refills: 0 oxyCODONE 5 mg Tab Commonly known as: Roxicodone Take 1 tablet by mouth every 6 hours as needed for Pain (For pain 4-10). 5 mg Quantity: 10 tablet Refills: 0 Continued medications, unchanged Dose Details citalopram 20 mg Tab Commonly known as: CeleXA Take 20 mg by mouth daily. 20 mg Refills: 0 Kody Carr is getting a prescription opioid for the treatment of acute post-operative pain related to the surgical procedure during this encounter. Pt has been advised to take the smallest dose possible to control pain and as the pain improves to take smaller doses and increase the time between doses. In addition to this medication, pt was educated on the non-opioid pain medications that canbe taken for adjunct treatment of pain. Non-pharmacological treatments were also discussed that include but not limited to ice, elevation, and activity modification as appropriate. The Acute Opioid Therapy Informed Consent form has been completed during this encounter and sent tomedical records for scanning to chart. Follow-up Care & Plans: To make an appointment or for questions about scheduling, please contact our administrative offices at [phone]. For clinical questions, please call our nurses at [phone]. Both offices are open Monday thru Monday 8a - 5p. With emergencies after hours, call the hospital turbogenerator operator at [phone] and ask for the Plastic Surgery Resident english as a second language teacher. Scheduled Appointments: No future appointments. Outpatient Services/Studies: No discharge procedures on file. Instructions Given to Patient at Discharge: Patient Instructions Hand Discharge Instructions Soak your finger twice day in soapy water (dial and warm tap water). After soak pat dry and allow time to air dry. Then apply a dressing of Xeroform and cover. OK to move your fingers. Do not use your fingers. Keep hand elevated at all times until your follow-up appointment. Take Ibuprofen and Tylenol. Max dose of Ibuprofen is 2400 mg per day. Max dose of Tylenol is 3000 mg per day. Take opioid pain medication as needed for breakthrough pain. Take your antibiotics as directed until your course is complete. Someone will contact you to schedule follow up. This will likely be a small procedure in clinic next . Call our office if: ??? Fingers in splint are white, numb or cold. ??? You have signs of infection o A temperature over 100.4 F. o Redness of the incision lines that is beginning to spread away from the incision. o Yellow pus-like or foul smelling drainage from the incision or drain site. o Increase pain/discomfort that is not relieved by your pain medication. To make an appointment or for questions about scheduling, please contact our administrative officesat [phone] For clinical questions, please call our nurses at [phone] Both offices are open Monday thru Monday 8a - 5p. With emergencies after hours, call the hospital turbogenerator operator at [phone] and ask for the Plastic Surgery Resident english as a second language teacher. General Instructions None Call your doctor if: Please call your doctor immediately or go to an Emergency Department if you notice worsening pain not controlled by pain medications, uncontrolled headache, vision changes, chest pain, difficulty breathing, persistent nausea and vomiting, new redness or swelling in any extremities, new onset weakness or changes in sensation, or for any fevers greater than 100.4 or 38 F. Signed: LISSET HOLT APRN 09/06/2019 Plastic Surgery Nursing Orders: Minor surgery for closure of finger next . documented in this encounter Discharge Instructions * Patient Instructions* Lisset Holt APRN - 09/06/2019 8:17 AM EDT Hand Discharge Instructions Soak your finger twice day in soapy water (dial and warm tap water). After soak pat dry and allow time to air dry. Then apply a dressing of Xeroform and cover. OK to move your fingers. Do not use your fingers. Keep hand elevated at all times until your follow-up appointment. Take Ibuprofen and Tylenol. Max dose of Ibuprofen is 2400 mg per day. Max dose of Tylenol is 3000 mg per day. Take opioid pain medication as needed for breakthrough pain. Take your antibiotics as directed until your course is complete. Someone will contact you to schedule follow up. This will likely be a small procedure in clinic next . Call our office if: ??? Fingers in splint are white, numb or cold. ??? You have signs of infection o A temperature over 100.4 F. o Redness of the incision lines that is beginning to spread away from the incision. o Yellow pus-like or foul smelling drainage from the incision or drain site. o Increase pain/discomfort that is not relieved by your pain medication. To make an appointment or for questions about scheduling, please contact our administrative officesat [phone] For clinical questions, please call our nurses at [phone] Both offices are open Monday thru Monday 8a - 5p. With emergencies after hours, call the hospital turbogenerator operator at [phone] and ask for the Plastic Surgery Resident english as a second language teacher. documented in this encounter Medications at Time of Discharge Medication Sig Dispensed Refills Start Date End Date citalopram (CeleXA) 20 mg Tablet Take 20 mg by mouth daily. 08/02/2019 amoxicillin-clavulanate (Augmentin) 875-125 mg Tablet Take 1 tablet by mouth 2 times daily for 7 days. 14 tablet 09/06/2019 09/13/2019 oxyCODONE (Roxicodone) 5 mg Tablet Take 1 tablet by mouth every 6 hours as needed for Pain (For pain 4-10). 10 tablet 09/06/2019 09/27/2019 documented as of this encounter Progress Notes * Gudelia Hubbard RN - 09/06/2019 11:46 AM EDT Patient discharge to home. IV removed, site benign. My assessment remains unchanged from my previous assessment. RN Discussed pain management with patient, pain tolerable. Patient medicated prior to discharge. Patient has all belongings and supplies needed. Patient received After Visit Summary and p rescriptions. These were reviewed, patient verbalizes understanding of AVS. All questions answered.Patient encouraged to call with questions or concerns. Patient discharged to home with family. Gudelia Hubbard, RN Patient Name: Kody Carr Patient Age: 59 y.o. Birthdate: 1960 Admit date: 09/05/2019 Attending Physician: Malia Denton MD * Lisset Holt, SUPERVISOR COLOR MAKING - 09/06/2019 7:41 AM EDT Plastic Surgery Inpatient Progress Note (Team Pager #[phone]) Date of surgery: 09/05/19 CC/Procedure(s): Left small finger I&D Surgeon: Bertin Subjective: Patient reports that he has been feeling well. Little pain. He is concerned about return to work and is requesting a note explaining his absence. Objective: BP (!) 129/93 Comment: RN aware, aware Pulse 64 Temp 36.8 ??C (98.2 ??F) (Oral) Resp 15 Ht 176.5 cm (5' 9.5) Wt 93 kg (205 lb) SpO2 95% BMI 29.84 kg/m?? Intake/Output Summary (Last 24 hours) at 09/06/2019 0742 Last data filed at 09/06/2019 0500 Gross per 24 hour Intake 2110 ml Output 1955 ml Net 155 ml General: Resting comfortably in no acute distress. Neuro: Awake, alert, responds to questions appropriately. Pulm: breathing unlabored. Left small finger: Neurovascularly intact.Radial side of finger with 2 x 0.5 cm dusky/blistered area. Incision clean, dry, intact. Serous drainage. Labs: Recent Labs 09/05/19 1711 NA 139 K 4.4 CL 104 BUN 11 CREATININE 0.86 CO2 23 GLUCOSE 106 ANIONGAP 12 CALCIUM 9.0 Assessment: Kody Carr is a 59 y.o. male with a history of high pressure air injection from gydraulic gauge on 09/03. Now admitted for s/p I&D for pain control and IV antibiotics. Plan: 1. Dressings/Drains: Xeroform and cover dressing. 2. Soak finger in soapy water twice daily. 3. Pain control: Tylenol, Oxycodone PRN 4. Antibiotics: IV Vancomycin while here, d/c with 1 week of Augmentin. 5. Diet: regular. 6. Activity: ROM of hand good. No gripping, strengthening. 7. DVT prophylaxis: fully ambulatory 8. Home medications: resume 9. Other active issues: none 10. Dispo (anticipated and date and location, PT/OT, VNA, PICC/OPAT needs, VAC): no VNA, no IV antibiotics. Plastic Surgery Inpatient Team Pager #[phone] Associated attestation - Malia Denton MD - 09/06/2019 9:56 AM EDT I have seen and examined the patient, providing stevens components as outlined below. I have reviewed the resident???s above note; my evaluation of the patient is below: Pt with dressing c/d/I this AM. Tolerated soaking without difficulty, stated he was moving his finger around better while soaking. D/w pt to continue soak at home Will d/c on abx Plan for revision skin closure in office next week * Saundra Moore RN - 09/05/2019 6:27 PM EDT Pt arrived to unit from PACU. Patient is alert and oriented. Patient hypertensive, BP 160/100 (MD notified); otherwise, VSs stable on RA. No complaints of chest pain or trouble breathing. No nausea or vomiting. Pain is well controlled. Dressing to left upper extremity is clean, dry and intact. Left hand secured with tubifast and elevated via IV pole. +CSMT. Patient is due to void. See flowsheet for further assessments. Pt oriented to room and call lester. Call lester within reach. Will continue to monitor. * Janelle Rios RN - 09/05/2019 3:44 PM EDT Arrived from OR in bed. Attached to monitors and alarms set appropriately for patient. Left hand with loreto wrap, CDI. 1711: labs sent 1735: Report called to MANISH Alston documented in this encounter H&P Notes * Umm Tapia PA - 09/05/2019 1:00 PM EDT Plastic Surgery Service Admission History and Physical Date of Service: 09/05/2019 Place of Service: ED01/ED01A Surgery Attending: Dr. Garcia History of Present Illness: Kody Carr ( ) is a 59 y.o. male who sustained a highpressure injection injury to the left fifth finger yesterday at 1400 yesterday. Patient states he was at work repairing a hydraulic gauge when it fired air at the finger. He reports that initially the injury was like a bee sting, but became progressively worse. This morning, patient noted increased swelling, erythema and ecchymosis. He presented to the ED at an OSH where he was found to have a swollen left finger with ecchymosis, decreased range of motion, and reported erythema. Xrays from OSH of the left hand were negative for fracture. He was then [place] [facility] [place]. Patient denies numbness, tingling, and weakness of the hand. No prior injuries or surgeries to the extremity. Right hand dominant. 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 Review of Systems: Positive as above and otherwise negative. Past Medical History: No past medical history on file. Patient Active Problem List Diagnosis Code ??? High-pressure injection injury of finger of left hand S69.82XA, W29.8XXA Past Surgical History: No past surgical history on file. Home Meds: No current facility-administered medications on file prior to encounter. Current Outpatient Medications on File Prior to Encounter Medication Sig Dispense Refill ??? citalopram (CeleXA) 20 mg Tablet Take 20 mg by mouth daily. Allergies: Allergies Allergen Reactions ??? Diatrizoic Acid CIS - URTICARIA+HIVES ??? Iodinated Contrast Media ??? Iodine And Iodide Containing Products Family History: No family history on file. Social History: Social History Socioeconomic History ??? Marital status: Spouse name: Not on file ??? Number of children: Not on file ??? Years of education: Not on file ??? Highest education level: Not on file Occupational History ??? Not on file Social Needs ??? Financial resource strain: Not on file ??? Food insecurity Worry: Not on file Inability: Not on file ??? Transportation needs Medical: Not on file Non-medical: Not on file Tobacco Use ??? Smoking status: Not on file Substance and Sexual Activity ??? Alcohol use: Not on file ??? Drug use: Not on file ??? Sexual activity: Not on file Lifestyle ??? Physical activity Days per week: Not on file Minutes per session: Not on file ??? Stress: Not on file Relationships ??? Social connections Talks on phone: Not on file Gets together: Not on file Attends confucianist service: Not on file Active member of club or organization: Not on file Attends meetings of clubs or organizations: Not on file Relationship status: Not on file ??? Intimate partner violence Fear of current or ex partner: Not on file Emotionally abused: Not on file Physically abused: Not on file Forced sexual activity: Not on file Other Topics Concern ??? Not on file Social History Narrative ??? Not on file Vitals: Last value Temperature Temp: 36.8 ??C (98.2 ??F) Heart Rate Heart Rate: 64 Blood Pressure BP: (!) 165/97 Respiratory Rate Resp: 16 SpO2 SpO2: 100 % Physical Exam: General: laying in bed in no acute distress. Neuro: Awake, alert, responds to questions appropriately, CN II-XII grossly intact, moving all fourextremities spontaneously. Pulm: Normal effort. Skin: warm, dry. Hand: - Inspection/Soft Tissue: ecchymosis at medial PIP joint. No lacerations or abrasions. No deformities. - Palpation: No pain along fingers/palm/wrist except TTP along L 5th digit and between 4th and 5th MCP heads at distal palmar crease. - Vascular: Palpable radial pulse, good cap refill. - Sensation: Median/Radial/Ulnar nerves intact. - Motor: Radial (EPL)/Median (APB)/Ulnar(DI) intact. - ROM: Normal PROM and AROM of DIP/PIP/MCP/Wrist. Lab: No results for input(s): WBC, HGB, PLATELET in the last 168 hours. No results for input(s): PT, PTT, INR in the last 168 hours. No results for input(s): NA, K, CL, CO2, BUN, CREATININE, GLUCOSE in the last 168 hours. No results for input(s): HA1C in the last 7068 hours. Micro: None Antibiotics: Ancef Imaging/Studies: CR hand from OSH, read pending Assessment: Kody Carr ( ) is a 59 y.o. male with a high pressure injury to the left fifth digit via hydraulic gauge. Patient would benefit from operative management of the injury including washout as injury involves the PIP joint. Plan: - Proceed to OR. The risks, benefits and indications were reviewed with the patient and there remains an indication for surgery. Consent signed. - Post op admit to Plastic Surgery - Antibiotics: Vancomycin, Zosyn - Pain control: tylenol, oxycodone - Ppx: SCDs - Other: elevate hand to IV poll The patient was discussed with attending, Dr. Denton who agrees with the above assessment and plan. YASH Bess Plastic Surgery 09/05/2019 Associated attestation - Malia Denton MD - 09/05/2019 1:37 PM EDT I have seen and examined the patient, providing stevens components as outlined below. I have reviewed the resident???s above note; my evaluation of the patient is below: Pt seen and examined. Will plan for exploration/debridement of L 5th digit, plan for admission for IV abx and pain control post-operatively. documented in this encounter Nursing Notes * Yair Bueno RN - 09/05/2019 2:50 PM EDT The patient was prepped with topical povidine betadine for his left hand surgery. After we had draped his hand and did our surgical safety pause timeout, we realized his chart states he has an allergy to iodine containing products. The surgeon said we will wipe off the betadine off his hand with s terile saline at the beginning of the case. documented in this encounter ED Notes * Tuan Chanel RN - 09/05/2019 12:39 PM EDT Pt ABX started. Pt ready for surgery. * Gilmar Pearl PA - 09/05/2019 11:39 AM EDT Chief Complaint Patient presents with ??? Finger Injury HPI 59-year-old male presents the emergency department from outside hospital for concerns of a high pressure injection injury to his left small finger. Patient was working on a pressure gauge yesterday when he felt a warm sensation and a stinging sensation in his finger. He looked down and saw a small puncture wound in his finger but have minimal to mild discomfort at that time. When he awoke this morning he had increased hand pain, swelling and decreased range of motion of his fifth digit so he presented to an outside hospital. At the outside hospital he received a tetanus vaccine. He currently describes the discomfort as sharp, nonradiating pain in the fifth digit that is worse with palpationand range of motion. He denies any numbness or tingling. He denies cough, cold, fevers, chills, shortness of breath. Allergies Allergen Reactions ??? Diatrizoic Acid CIS - URTICARIA+HIVES ??? Iodinated Contrast Media ??? Iodine And Iodide Containing Products Review of Systems Constitutional: Negative for chills and fever. HENT: Negative for congestion. Eyes: Negative for visual disturbance. Respiratory: Negative for shortness of breath. Cardiovascular: Negative for chest pain. Gastrointestinal: Negative for abdominal pain. Musculoskeletal: Negative for back pain. Skin: Positive for color change. Allergic/Immunologic: Negative for immunocompromised state. Neurological: Negative for headaches. Physical Exam Constitutional: General: He is not in acute distress. Appearance: He is not ill-appearing. HENT: Head: Normocephalic. Nose: Nose normal. Eyes: Conjunctiva/sclera: Conjunctivae normal. Neck: Musculoskeletal: Normal range of motion. Pulmonary: Effort: Pulmonary effort is normal. Musculoskeletal: Comments: Left fifth digit Significant swelling in the fifth digit with puncture wound on the radial aspect of the digit with surrounding bruising and swelling. There is erythema on the dorsal and palmar aspect of the fifth digit. Swelling extends into the dorsal aspect of the hand. Patient has significantly decreased range of motion of the fifth digit only with both flexion and extension due to pain and stiffness. Slight decrease sensation to two-point discrimination on the very distal aspect of the digit on the radial side. Brisk capillary refill. Compartments are soft and easily compressible. Full painless range of motion at the wrist and digits 1 through 4. Skin: General: Skin is warm. Neurological: Mental Status: He is alert. Psychiatric: Mood and Affect: Mood normal. Procedures MDM 59-year-old male presents the emergency department for high-pressure injection injury of his left fifth digit. Patient has significant swelling and decreased range of motion of the digit. Hand surgery was immediately consulted who evaluated the patient and recommended 2 g Ancef and surgical intervention. Patient was reevaluated multiple times with unchanged physical exam and he remained hemodynamically stable. Gilmar Pearl PA 09/05/19 1637 * Israel Cartwright MD - 09/05/2019 9:33 AM EDT EM attending brief transfer acceptance note: Kody Carr is a 59 y.o. who I accepted in transfer from [facility] [place]. The patient will be evaluated in the Emergency Department for finger high pressure injection injury. The EM team will contact the plastic surgery team. The OSH does not agree to take the patient back in transfer after our evaluation and treatment. Transfer and stabilization prior to transfer were discussed - Td updated, antibiotics given, hand to be elevated. Israel Cartwright MD 09/05/19 [id number] documented in this encounter Miscellaneous Notes * Initial Assessments - Lily Rodriguez, RN - 09/06/2019 10:21 AM EDT Office of Care Management Assessment Medical record reviewed. Plan of care and patient status discussed with direct care RN and/or Care Team in multidisciplinary rounds. Screening: Present on Admission: ??? High-pressure injection injury of finger of left hand Patient has not been admitted to a hospital within the last 30 days. Patient receiving hospital care under Observation status. Admission order reviewed. Primary Insurance on file: WORK COMP GENERIC Secondary Insurance on file: N/A Primary care provider on file: None None Shyam Crespo MD (message out to bello to update the chart) Advance Directive on file and Code Status: <no information>, Full Code Patient???s Functional Status: SBA w FWW [address] [facility] [id number] Supports: spouse Treasure Assessment: Patient with no apparent RNCM/SW needs at this time. No housing, transportation, insurance, resources concerns identified at this time. Supports in place to achieve a safe post-hospital transition. No identified barriers to accessing necessary care and/or follow-up after discharge. Plan: Patient to d/c to home via private car (spouse to drive) when medically ready. 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 Lily Rodriguez, RN Pager [phone] * Plan of Care - JuanJeniffer - 09/06/2019 5:44 AM EDT Problem: Skin Integrity Impairment, Risk/Actual (Adult) Goal: Identify Related Risk Factors and Signs and Symptoms Related risk factors and signs and symptoms are identified upon initiation of Human Response Clinical Practice Guideline (CPG) Outcome: Ongoing (Interventions Implemented as Appropriate) 09/06/19 0533 Skin Integrity Impairment, Risk/Actual Skin Integrity Impairment, Risk/Actual: Related Risk Factors surgery/procedure;traumatic injury OUTCOME EVALUATION NOTE: OUTCOME SUMMARY: Patient A/Ox4, resting comfortably in bed overnight. BP elevated, see vitals for details, MD aware,BPs trending down. LUE elevated per orders, LORETO and gauze dressing CDI. Pain managed with PRN and scheduled pain medications. Voiding adequately up to toilet, initial PVRs 500, trending down, see I/O's for details. IV abx given. RN will continue to monitor and help pt reach d/c goals. PLAN MOVING FORWARD: PT/OT, elevate LUE, d/c planning INDIVIDUALIZED FALL PREVENTION INTERVENTIONS: Bed alarm Patient-specific fall risk factors per assessment: [current deficits]: Recent operation, generalized weakness Assistance [level of assistance required for transfers and ambulation]: SBA FWW Supervision [direct monitoring required during toileting and ADLs]: Arms length Surveillance [continuous indirect monitoring]: Masimo, purposeful rounding, bed alarm Patient-specific fall prevention interventions for sensory deficits provided, if applicable: [X] N/A CPG GOAL OUTCOME EVALUATION: Goal: Skin Integrity/Wound Healing Patient will demonstrate the desired outcomes by discharge/transition of care. Outcome: Ongoing (Interventions Implemented as Appropriate) 09/06/19532 Skin Integrity Impairment, Risk/Actual (Adult) Skin Integrity/Wound Healing making progress toward outcome Problem: Patient Care Overview Goal: Plan of Care Review Outcome: Ongoing (Interventions Implemented as Appropriate) 09/05/19199909/06/19532 Plan of Care Review Progress -- progress toward functional goals as expected Coping/Psychosocial Plan Of Care Reviewed With patient -- Goal: Fall Prevention-Safe Patient Handling Outcome: Ongoing (Interventions Implemented as Appropriate) 09/05/191999 Healy Fall Risk History of Falling 0 Secondary Diagnosis 15 Ambulatory Aids 0 Intravenous Therapy/Heparin/Saline Lock 20 Gait/Transferring 10 Mental Status 0 Score 45 OTHER Healy Fall Risk High Restraint Interventions Safety Promotion/Fall Prevention activity supervised Positioning Body Position independent Activity Activity Type activity adjusted per tolerance Activity Assistance Provided assistance, stand-by Assistive Device Utilized front-wheel walker Goal: Infection Control Outcome: Ongoing (Interventions Implemented as Appropriate) 09/05/191999 Safety Interventions Isolation Precautions standard precautions maintained Infection Prevention environmental surveillance performed Coping Strategies Supportive Measures active listening utilized Goal: Discharge Needs Assessment Outcome: Ongoing (Interventions Implemented as Appropriate) 09/06/19532 Discharge Needs Assessment Discharge Disposition still a patient Goal: Interdisciplinary Rounds/Family Conf Outcome: Ongoing (Interventions Implemented as Appropriate) 09/06/19532 Interdisciplinary Rounds/Family Conf Participants patient;nursing * Consult Note - Brtitany Wilks [facility] - 09/05/2019 4:05 PM EDT Clinical Pharmacist Note - ChesterFD Kody Carr [id number] Kody Carr is a 59 y.o. male who is starting antibiotic therapy which includes intravenous vancomycin. Based on a review of the patient???s chart and/or conversation with the patient???s providers vancomycin is being used for empiric coverage of skin/skin structure infection with a targeted goal of 10 - 15 mcg/mL. The following Pharmacokinetic data has been evaluated: Wt Readings from Last 1 Encounters: 09/05/19 93 kg (205 lb) Ht Readings from Last 1 Encounters: No data found for Ht Labs: Creatinine clearance: No results found for: CREATININE Dosing recommendations: ??? Based on this information, vancomycin therapy will be initiated with a one- time dose of 2000 mgto be given now. ??? A full dosing regimen will be ordered upon complete pharmacist consultation to follow. We will continue to monitor the patient as long as he remains on vancomycin therapy. Thank you for this consult and please page the care area pharmacist with any questions you may have. Alternately, during off-hours () you may call [phone] to contact a pharmacist. Brittany Wilks RPH * Brief Op Note - Jose Landis MD - 09/05/2019 3:48 PM EDT Brief Operative Note Patient Name: Kody Carr : [id number] MR#: [id number] Case Date: 09/05/2019 Surgeon: Surgeon(s) and Role: * Malia Denton MD - Primary * Jose Landis MD - Assisting Attending Preoperative diagnosis: Left small finger high pressure injury Postoperative diagnosis: Left small finger high pressure injury Procedure(s) (LRB): DEBRIDEMENT SKIN AND SUBCU, UPPER EXTREMITY (WRVU 1.01) INCISION & DRAINAGE, FINGER, COMPLICATED (WRVU 2.24) (Left) Anesthesia: General Findings: Left little finger exploration and washout, no purulent fluid or abscess noted Complications: None Estimated Blood Loss: * No values recorded between 09/05/2019 2:41 PM and 09/05/2019 3:28 PM * Specimens removed during surgery: None Fluids: Intraprocedure Crystalloid Total Anesthesia Output Blood Loss 5 mL Lactated Ringers Volume (mL) 700 mL PRBCs: none (See Anesthesia Record/Report for Other Blood Products) Urine Output: (no urine output recorded) Drains: None Disposition: awakened from anesthesia, extubated and taken to the recovery room in a stable condition, having suffered no apparent untoward event. Condition: doing well without problems (Please see the Surgical Encounter Summary for any Implant and Specimen details pertinent to this patient.) Infection Bundle used? No * Op Note - Malia Denton MD - 09/05/2019 3:41 PM EDT [facility] [place] Patient Name: Kody Carr : [id number] MR#: [id number] Case Date: 09/05/2019 Surgeon: Surgeon(s) and Role: * Malia Denton MD - Primary * Jose Landis MD - Assisting Attending Preoperative diagnosis: Left small finger high pressure injury Postoperative diagnosis: Left small finger high pressure injury Procedure(s) (LRB): DEBRIDEMENT SKIN AND SUBCU, UPPER EXTREMITY (WRVU 1.01) INCISION & DRAINAGE, FINGER, COMPLICATED (WRVU 2.24) (Left) Anesthesia: General Estimated Blood Loss: * No values recorded between 09/05/2019 2:41 PM and 09/05/2019 3:28 PM * Specimens removed during surgery: None Drains: * No LDAs found * Surgical Closure: Primary Closure - skin incision is closed but with open spaces for wires, tanesha, drains or other devices Disposition: awakened from anesthesia, extubated and taken to the recovery room in a stable condition, having suffered no apparent untoward event. Condition: doing well without problems (Please see the Surgical Encounter Summary for any Implant and Specimen details pertinent to this patient.) HPI/Surgical Indications: Kody Carr is a 59-year-old gentleman who presented to an outside hospital with concern over his left fifth digit, which he injured 1 day prior to presentation. Per patient, he suffered an injury from high-pressure injector into his left fifth digit. He states the only air was injected. Initially he was not concerned but over the course of the day he had increased swelling and discomfort in his left fifth digit. He was [place] [facility] [place]. After evaluation we determined he would benefit from exploration and debridement of his left fifth digit. The risks, benefits, and alternatives were discussed with the patient and he was agreeable to pr oceed. Procedure Description: After informed consent was obtained the patient was brought to the operatingroom and placed on the table in supine position. SCDs were placed and perioperative antibiotics hadbeen administered. General anesthesia was induced. A tourniquet was placed in the left upper extremity and the patient was prepped and draped in standard sterile fashion. We began by marking a Brunerincision extending proximally and distally from his point of injury. A digital block was performed of the left fifth digit using 1% lidocaine. The tourniquet was then inflated to 250 mmHg. Using a scalpel we sharply incised along our markings to the level of the subcutaneous fat. Iris scissors wereused to elevate skin flaps down to the level of the tendon sheath. The skin and fat were thoroughlyexamined. Approximately 2 cm?? of nonviable fat was debrided from the area underlying the site of injury. The neurovascular bundle on the lateral aspect of his left fifth digit was noted to be intact. We carefully examined the digit for signs of injury to the joint space and tendon sheath and none were noted. Full range of motion was preserved. The tourniquet was released. The total tourniquet time was 27 minutes. We thoroughly examined for hemostasis. Hemostasis was achieved with bipolar cautery. The skin edges were loosely approximated with 4-0 nylon suture, leaving ample space for drainage. A bulky dressing was applied with Xeroform gauze and Kerlix. The patient was extubated and taken to the recovery room in stable condition. Infection Bundle used? N/A Attestation: Case Date: 09/05/2019 I was present and I participated during the entire procedure (does not need to include opening and closing). Malia Denton MD 09/05/2019 * Consult Note - Umm Tapia PA - 09/05/2019 12:36 PM EDT Images from the original note were not included. Plastic Surgery Service Hand Consult Note Date of Consultation: 09/05/2019 Place of Service: ED01/ED01A Surgery Attending: Bertin Reason for Consult: We are seeing Kody Carr at the request of the Emergency Medicine service for the evaluation of a high pressure left fifth finger injury. History of Present Illness: Kody Carr ( ) is a 59 y.o. male who sustained a highpressure injection injury to the left fifth finger yesterday at 1400 yesterday. Patient states he was at work repairing a hydraulic gauge when it fired air at the finger. He reports that initially the injury was like a bee sting, but became progressively worse. This morning, patient noted increased swelling, erythema and ecchymosis. He presented to the ED at an OSH where he was found to have a swollen left finger with ecchymosis, decreased range of motion, and reported erythema. Xrays from OSH of the left hand were negative for fracture. He was then [place] [facility] [place]. Patient denies numbness, tingling, and weakness of the hand. No prior injuries or surgeries to the extremity. 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 Review of Systems: Positive as above and otherwise negative. Past Medical History: No past medical history on file. Patient Active Problem List Diagnosis Code ??? High-pressure injection injury of finger of left hand S69.82XA, W29.8XXA Past Surgical History: No past surgical history on file. Home Meds: No current facility-administered medications on file prior to encounter. Current Outpatient Medications on File Prior to Encounter Medication Sig Dispense Refill ??? citalopram (CeleXA) 20 mg Tablet Take 20 mg by mouth daily. Allergies: Allergies Allergen Reactions ??? Diatrizoic Acid CIS - URTICARIA+HIVES ??? Iodinated Contrast Media ??? Iodine And Iodide Containing Products Family History: No family history on file. Social History: Social History Socioeconomic History ??? Marital status: Spouse name: Not on file ??? Number of children: Not on file ??? Years of education: Not on file ??? Highest education level: Not on file Occupational History ??? Not on file Social Needs ??? Financial resource strain: Not on file ??? Food insecurity Worry: Not on file Inability: Not on file ??? Transportation needs Medical: Not on file Non-medical: Not on file Tobacco Use ??? Smoking status: Not on file Substance and Sexual Activity ??? Alcohol use: Not on file ??? Drug use: Not on file ??? Sexual activity: Not on file Lifestyle ??? Physical activity Days per week: Not on file Minutes per session: Not on file ??? Stress: Not on file Relationships ??? Social connections Talks on phone: Not on file Gets together: Not on file Attends confucianist service: Not on file Active member of club or organization: Not on file Attends meetings of clubs or organizations: Not on file Relationship status: Not on file ??? Intimate partner violence Fear of current or ex partner: Not on file Emotionally abused: Not on file Physically abused: Not on file Forced sexual activity: Not on file Other Topics Concern ??? Not on file Social History Narrative ??? Not on file Vitals: Last value Temperature Temp: 36.8 ??C (98.2 ??F) Heart Rate Heart Rate: 64 Blood Pressure BP: (!) 165/97 Respiratory Rate Resp: 16 SpO2 SpO2: 100 % Physical Exam: General: laying in bed in no acute distress. Neuro: Awake, alert, responds to questions appropriately, CN II-XII grossly intact, moving all fourextremities spontaneously. Pulm: Normal effort. Skin: warm, dry. Hand: - Inspection/Soft Tissue: ecchymosis at medial PIP joint. No lacerations or abrasions. No deformities. - Palpation: No pain along fingers/palm/wrist except TTP along L 5th digit and between 4th and 5th MCP heads at distal palmar crease. - Vascular: Palpable radial pulse, good cap refill. - Sensation: Median/Radial/Ulnar nerves intact. - Motor: Radial (EPL)/Median (APB)/Ulnar(DI) intact. - ROM: Normal PROM and AROM of DIP/PIP/MCP/Wrist. Lab: No results for input(s): WBC, HGB, PLATELET in the last 168 hours. No results for input(s): PT, PTT, INR in the last 168 hours. No results for input(s): NA, K, CL, CO2, BUN, CREATININE, GLUCOSE in the last 168 hours. No results for input(s): HA1C in the last 7068 hours. Micro: None Antibiotics: Ancef received at OSH Tetanus received at OSH Imaging/Studies: XR Left Hand: No fracture identified. Rad read pending. Procedure: None Assessment: Kody Carr ( ) is a 59 y.o. male with a high pressure injury to the left fifth digit via hydraulic gauge. Recommendations: - Operative management of the high pressure injury. - Keep injured hand elevated - Tetanus up to date - Ancef preoperatively - Will admit patient to Plastic Surgery Service for IV antibiotics and further postoperative management The patient was discussed with Dr. Denton, who agrees with the above assessment and plan. YASH Bess 09/05/2019 Thank you for this consult. Please do not hesitate to page [phone] if you have any questions or concerns. [ X ] Consult service to continue to follow [ ] Consult service to sign off Associated attestation - Malia Denton MD - 09/05/2019 1:35 PM EDT I have seen and examined the patient, providing stevens components as outlined below. I have reviewed the resident???s above note; my evaluation of the patient is below: Pt seen and examined. History and physical per PA note. Right-handed gentleman with high-pressure air injection into left 5th digit at level of PIP 1d ago.Presented to OSH with pain, swelling, and redness. Per pt, after injury he was able to normally move digit. On exam, pt in NAD. L 5th digit with erythema of finger to ~distal palmar crease, significant edema in finger, concern for tissue necrosis overlying PIP (site of injection) -Rec exploration of L 5th digit to r/o tendon sheath infxn, debride nonviable tissues -Admit for IV abx * ED Triage - Tuan Chanel RN - 09/05/2019 11:41 AM EDT Pt to ED 1A for c/o left fifth digit injury. Per pt, he was repairing a hydraulic pressure gauge and hydraulic fluid was injected into his finger. Pain currently 07/25. A/o x 4. Skin WPD. Injured finger swollen, echymotic at site of injury. documented in this encounter Plan of Treatment Not on file documented as of this encounter Procedures Procedure Name Priority Date/Time Associated Diagnosis Comments BASIC METABOLIC PANEL (NON-FASTING) STAT 09/05/2019 5:11 PM EDT INCISION & DRAINAGE,FINGER,COMP LICATED Routine 09/05/2019 3:33 PM EDT DEBRIDEMENT SKIN AND SUBCU, UPPER EXTREMITY Routine 09/05/2019 3:33 PM EDT Drain Finger Abscess, Complicated ([id number]) 09/05/2019 2:11 PM EDT Left small finger high pressure injury Debridement, Skin, Sub-Q Tissue ([id number]) 09/05/2019 2:11 PM EDT Left small finger high pressure injury documented in this encounter Results * Basic Metabolic Panel (non-fasting) (09/05/2019 5:11 PM EDT) Glucose Lvl 106 65 - 199 mg/dL [facility] Comment:Diabetes: >=200 mg/d L plus symptoms BUN 11 10 - 20 mg/dL [facility] Creatinine 0.86 0.80 - 1.50 mg/dL [facility] Sodium 139 135 - 145 mmol/L [facility] Potassium 4.4 3.5 - 5.0 mmol/L [facility] Comment: Please note: ??Patients with WBC >100,000 may have falsely elevated Potassium levels. ??For accurate Potassium quantification in these patients send serum separator tube (gold top) for subsequent determinations. ??Contact the Clinical Chemistry Laboratory if there are any questions. Chloride 104 98 - 107 mmol/L [facility] CO2 23 22 - 31 mmol/L [facility] Anion Gap 12 5 - 15 mmol/L [facility] Calcium 9.0 8.5 - 10.5 mg/dL [facility] Estimated GFR 94 >=60 mL/min/1. 73 m?? [facility] Comment: The eGFR was calculated using the CKD-EPI equation. As with all creatinine based estimates of kidney function, eGFR values calculated with the CKD-EPI equation are not accurate in patients with acute kidney failure, extremes of body mass or the acutely ill. [email or web address].In/[facility] eGFR 108 >=60 mL/min/1. 73 m?? [facility] Comment: The eGFR was calculated using the CKD-EPI equation. As with all creatinine based estimates of kidney function, eGFR values calculated with the CKD-EPI equation are not accurate in patients with acute kidney failure, extremes of body mass or the acutely ill. http://WeStudy.In/[facility]nkf Blood specimen (specimen) 09/05/2019 5:11 PM EDT 09/05/2019 5:19 PM EDT Narrative Resulting Agency Comment Spec In Lab Malia Denton MD CHEMISTRY ORDERABLES [facility] [place] [address] documented in this encounter Visit Diagnoses Not on filedocumented in this encounter Admitting Diagnoses Diagnosis High-pressure injection injury of finger of left hand documented in this encounter Administered Medications Inactive Administered Medications - up to 3 most recent administrations Medication Order MAR Action Action Date Dose Rate Site acetaminophen (Tylenol) tablet 1,000 mg 1,000 mg, Oral, EVERY 8 HOURS SCHEDULED, First dose on Teresa 09/05/19 at 1615, Until Discontinued, Maximum total acetaminophen dose 4 grams per 24 hours., Routine Given 09/06/2019 8:36 AM EDT 1,000 mg Given 09/06/2019 12:15 AM EDT 1,000 mg Given 09/05/2019 4:13 PM EDT 1,000 mg ceFAZolin (Ancef) 2g in dextrose 5% 100 mL 2 g, Intravenous, ONCE, 1 dose, On Teresa 09/05/19 at 1233, Administer over 30 Minutes, Indication for (Active or Suspected): Skin/Skin Structure Given 09/05/2019 12:33 PM EDT 2 g 200 mL/hr citalopram (CeleXA) tablet 20 mg 20 mg, Oral, DAILY, First dose on Teresa 09/05/19 at 1915, Until Discontinued, Routine Given 09/06/2019 8:36 AM EDT 20 mg lidocaine (XYLOCAINE) 10 mg/mL (1 %) injection ONCE PRN, Starting on Mon09/05/19 at 1534, Until Mon09/06/19 at 1536, Intra-Operative (Intra-Procedure), Routine Given 09/05/2019 3:34 PM EDT 10 mLs 19- Surgical Site ondansetron (ZOFRAN) injection 4 mg 4 mg, Intravenous, EVERY 8 HOURS PRN, Starting on Teresa 09/05/19 at 1558, Until Mon09/06/19 at 1536, Nausea, May repeat times one in 30 minutes if ineffective. If multiple antiemetics are ordered, use ondansetron first, Recovery (Recovery-Hospital Unit) ondansetron (Zofran) tablet 4 mg 4 mg, Oral, EVERY 8 HOURS PRN, Starting on Teresa 09/05/19 at 1558, Until Mon09/06/19 at 1536, Nausea, Vomiting, If multiple antiemetics are ordered, use ondansetron first. PO Preferred. If patient unable to take PO, may give IV if ordered. May repeat times one in 45 minutes if ineffective., Recovery (Recovery-Hospital Unit), Routine oxyCODONE (Roxicodone) tablet 5 mg 5 mg, Oral, EVERY 4 HOURS PRN, Starting on Teresa 09/05/19 at 1558, Until Mon09/06/19 at 1536, Pain, For pain 4-10, Routine Given 09/05/2019 7:00 PM EDT 5 mg piperacillin-tazobactam (ZOSYN) 3.375 g vial attach to sodium chloride 0.9% 50 mL Mini-Bag Plus 3.375 g, Intravenous, EVERY 8 HOURS, First dose on Teresa 09/05/19 at 1630, Until Discontinued, Administer over 4 Hours, Warning Vesicant/Irritant Medication Do not administer or Y-site with lactated ringers., Indication for (Active or Suspected): Skin/Skin Structure New Bag 09/05/2019 4:19 PM EDT 3.375 g 12.5 mL/hr sodium chloride 0.9 % (flush) flush 5 mL 5 mL, Intravenous, 2 TIMES DAILY, First dose on Teresa 09/05/19 at 2100, Until Discontinued, Recovery (Recovery-Hospital Unit), Routine Given 09/06/2019 9:41 AM EDT 5 mLs Given 09/05/2019 9:31 PM EDT 5 mLs vancomycin 1.25 g sodium in chloride 0.9% 250 mL 1.25 g, Intravenous, at 200 mL/hr, EVERY 12 HOURS, First dose on Mon09/06/19 at 0800, Until Discontinued, Maximum infusion rate is 1 gram/hour. If flushing of the face, neck, upper body, arms, and/or back occurs decrease infusion rate by 50% to reduce the severity of symptoms. This medication may have an associated drug lab level. Please see MAR for scheduled level. Warning Vesicant/Irritant Medication , Routine New Bag 09/06/2019 9:41 AM EDT 1.25 g 200 mL/hr vancomycin 2 g in sodium chloride 0.9% 500 mL 2 g, Intravenous, at 250 mL/hr, ONCE, 1 dose, On Mon09/05/19 at 2000, Maximum infusion rate is 1 gram/hour. If flushing of the face, neck, upper body, arms, and/or back occurs decrease infusion rate by 50% to reduce the severity of symptoms. This medication may have an associated drug lab level. Please see MAR for scheduled level. Warning Vesicant/Irritant Medication , Routine New Bag 09/05/2019 9:26 PM EDT 2 g 250 mL/ hr Vancomycin Level - MAR Order Reminder NOT APPLICABLE, ONCE, On Mon09/08/19 at 0730, 1 dose, This alert will be scheduled by a pharmacist after order placement. This order is a reminder to nursing staff to release and draw the PRN drug level at the specified time. It may be necessary to contact phlebotomy 60 minutes prior to the scheduled due time to assure a timely blood draw. documented in this encounter Active and Recently Administered Medications Times are shown in EDT. Scheduled Medication Order 09/04/2019 09/05/2019 09/06/2019 acetaminophen (Tylenol) tablet 1,000 mg 1,000 mg, Oral, EVERY 8 HOURS SCHEDULED, First dose on Mon09/05/19 at 1615, Until Discontinued, Maximum total acetaminophen dose 4 grams per 24 hours., Routine 1613 (Given - Provider: Millie Carson RN)2200 (Canceled Entry - Provider: Millie Carson RN - Reason: Order parameters not met) 0015 (Given - Provider: Jeniffer Martinez)0836 (Given - Provider: Gudelia Hubbard, MANISH)2200 (Canceled Entry - Provider: Millie Carson, MANISH - Reason: Order parameters not met) ceFAZolin (Ancef) 2g in dextrose 5% 100 mL (COMPLETED) 2 g, Intravenous, ONCE, 1 dose, On Teresa 09/05/19 at 1233, Administer over 30 Minutes, Indication for (Active or Suspected): Skin/Skin Structure 1233 (Given - Provider: Tuan Chanel RN) citalopram (CeleXA) tablet 20 mg 20 mg, Oral, DAILY, First dose on Teresa 09/05/19 at 1915, Until Discontinued, Routine 2133 (Not Given - Provider: Jeniffer Martinez - Reason: Patient/family refused - Comment: pt takes in AM, refused PM scheduled dosage) 0836 (Given - Provider: Gudelia Hubbard, MANISH) docusate sodium (Colace) capsule 100 mg 100 mg, Oral, 2 TIMES DAILY, First dose on Teresa 09/05/19 at 2100, Until Discontinued, Routine 2100 (Not Given - Provider: Jeniffer Martinez - Reason: Patient/family refused) 0900 (Not Given - Provider: Gudelia Hubbard RN - Reason: Patient/family refused) piperacillin-tazobactam (ZOSYN) 3.375 g vial attach to sodium chloride 0.9% 50 mL Mini-Bag Plus (CANCELED) 3.375 g, Intravenous, EVERY 8 HOURS, First dose on Teresa 09/05/19 at 1630, Until Discontinued, Administer over 4 Hours, Warning Vesicant/Irritant Medication Do not administer or Y-site with lactated ringers., Indication for (Active or Suspected): Skin/Skin Structure 1619 (New Bag - Provider: Millie Carson, MANISH)2019 (Stopped - Provider: Jeniffer Martinez) sodium chloride 0.9 % (flush) flush 5 mL 5 mL, Intravenous, 2 TIMES DAILY, First dose on Teresa 09/05/19 at 2100, Until Discontinued, Recovery (Recovery-Hospital Unit), Routine 2130 (Given - Provider: Jeniffer Martinez) 0941 (Given - Provider: Gudelia Hubbard, MANISH) vancomycin 1.25 g sodium in chloride 0.9% 250 mL 1.25 g, Intravenous, at 200 mL/hr, EVERY 12 HOURS, First dose on Mon09/06/19 at 0800, Until Discontinued, Maximum infusion rate is 1 gram/hour. If flushing of the face, neck, upper body, arms, and/or back occurs decrease infusion rate by 50% to reduce the severity of symptoms. This medication may have an associated drug lab level. Please see MAR for scheduled level. Warning Vesicant/Irritant Medication , Routine 0941 (New Bag - Provider: Gudelia Hubbard, RN)1056 (Stopped - Provider: Gudelia Hubbard, RN) vancomycin 2 g in sodium chloride 0.9% 500 mL (COMPLETED) 2 g, Intravenous, at 250 mL/hr, ONCE, 1 dose, On Mon09/05/19 at 2000, Maximum infusion rate is 1 gram/hour. If flushing of the face, neck, upper body, arms, and/or back occurs decrease infusion rate by 50% to reduce the severity of symptoms. This medication may have an associated drug lab level. Please see MAR for scheduled level. Warning Vesicant/Irritant Medication , Routine 2126 (New Bag - Provider: Jeniffer Martinez)2326 (Stopped - Provider: Jeniffer Martinez) Vancomycin Level - MAR Order Reminder NOT APPLICABLE, ONCE, On Mon09/08/19 at 0730, 1 dose, This alert will be scheduled by a pharmacist after order placement. This order is a reminder to nursing staff to release and draw the PRN drug level at the specified time. It may be necessary to contact phlebotomy 60 minutes prior to the scheduled due time to assure a timely blood draw. PRN Medication Order 09/04/2019 09/05/2019 09/06/2019 bisacodyL (Dulcolax) suppository 10 mg 10 mg, Rectal, DAILY PRN, Starting on Mon09/05/19 at 1558, Until Mon09/06/19 at 1536, Constipation, Administer if needed per patient's routine or if no bowel movement within 48 hours to achieve: (1) One bowel movement at least every 48 hours, AND (2) Without straining. - If multiple PRN bowel medications ordered, start with magnesium hydroxide, then bisacodyl. - Multiple medications may be given concomitantly for constipation., Routine lidocaine (XYLOCAINE) 10 mg/mL (1 %) injection 3 mg 3 mg (0.3 mL), Subcutaneous, ONCE PRN, 1 dose, Starting on Teresa 09/05/19 at 1558, Until Mon09/06/19 at 1536, for discomfort with PIV insertion, Recovery (Recovery-Hospital Unit), Routine lidocaine (XYLOCAINE) 10 mg/mL (1 %) injection (CANCELED) ONCE PRN, Starting on Teresa 09/05/19 at 1534, Until Mon09/06/19 at 1536, Intra-Operative (Intra-Procedure), Routine 1534 (Given - Provider: Alondra Denton MD) ondansetron (ZOFRAN) injection 4 mg(Linked Group 1) 4 mg, Intravenous, EVERY 8 HOURS PRN, Starting on Teresa 09/05/19 at 1558, Until Mon09/06/19 at 1536, Nausea, May repeat times one in 30 minutes if ineffective. If multiple antiemetics are ordered, use ondansetron first, Recovery (Recovery-Hospital Unit) ondansetron (Zofran) tablet 4 mg(Linked Group 1) 4 mg, Oral, EVERY 8 HOURS PRN, Starting on Teresa 09/05/19 at 1558, Until Mon09/06/19 at 1536, Nausea, Vomiting, If multiple antiemetics are ordered, use ondansetron first. PO Preferred. If patient unable to take PO, may give IV if ordered. May repeat times one in 45 minutes if ineffective., Recovery (Recovery-Hospital Unit), Routine oxyCODONE (Roxicodone) tablet 5 mg 5 mg, Oral, EVERY 4 HOURS PRN, Starting on Teresa 09/05/19 at 1558, Until 09/06/19 at 1536, Pain, For pain 4-10, Routine 1900 (Given - Provider: Hernandez Moore RN) sodium chloride 0.9 % (flush) flush 5-20 mL 5-20 mL, Intravenous, EVERY 1 MIN PRN, Starting on Teresa 09/05/19 at 1558, Until 09/06/19 at 1536, flush, Flush pertains to all indwelling lines. Flush per protocol found in the job aid using the link provided on this medication record., Recovery (Recovery-Hospital Unit), Routine Linked Groups Order Group 1: ondansetron (Zofran) tablet 4 mgJump to med 4 mg, Oral, EVERY 8 HOURS PRN, Starting on Teresa 09/05/19 at 1558, Until 09/06/19 at 1536, Nausea, Vomiting, If multiple antiemetics are ordered, use ondansetron first. PO Preferred. If patient unable to take PO, may give IV if ordered. May repeat times one in 45 minutes if ineffective., Recovery (Recovery-Hospital Unit), Routine Or ondansetron (ZOFRAN) injection 4 mgJump to med 4 mg, Intravenous, EVERY 8 HOURS PRN, Starting on Teresa 09/05/19 at 1558, Until 09/06/19 at 1536, Nausea, May repeat times one in 30 minutes if ineffective. If multiple antiemetics are ordered, use ondansetron first, Recovery (Recovery-Hospital Unit) documented in this encounter Care Teams Metal Container Maker Relationship Specialty Start Date End Date None None PCP - General 09/05/19 09/05/19 documented as of this encounter
--- OUTSIDE RECORDS SUMMARY | 2023-10-30 02:09 | XMS_ITS | Encounter Summary ---
Author Organization [facility] Address [facility] [place] [address] Care Team Providers Care Mule Operator Name Role Phone Shyam Crespo MD Primary Care Provider [phone] Reason for Visit * Reason Comments Procedure s/p left fifth finge r infection Encounter Details Date Type Department Care Team (Latest Contact Info) Description 09/12/2019 2:00 PM EDT Procedure [place] [address] Malia Denton MD [facility] [place] [place] [address] Laceration of finger, foreign body presence unspecified, nail damage status unspecified, unspecified finger, unspecified laterality, subsequent encounter; High-pressure injection injury of finger of left hand, subsequent encounter Social History Tobacco Use Types Packs/Day Years Used Date Smoking Tobacco: Former Smokeless Tobacco: Never Sex and Gender Information Value Date Recorded Sex Assigned at Not on file Gender Identity Not on file Sexual Orientation Not on file documented as of this encounter Patient Instructions * Patient Instructions* Dorina Lowry RN - 09/12/2019 2:00 PM EDT The healing process is different for each person and/or procedure. You can expect some discomfort. There will also be swelling and possibly bruising that will subside in the next few days or weeks. Note that your pain, swelling, bruising, and drainage are directly related to activity. Follow up in [address] Denton for suture removal Dressing: Keep your incision/dressing dry for 24 hours. Wash daily with soapy water, pat dry then apply layer of Xerofrom dressing and gauze. Change as needed Sutures: __x___Your sutures need to be removed in 14 days. If bleeding occurs which soaks through the outside bandage, apply firm, direct pressure with your hand over the bandage for 15 minutes Showering: You may shower in 24 hours. Do not soak in a pool or bath until completely healed. Activity Restrictions: To minimize swelling, pain and bleeding please follow these instructions: Hand surgery: Keep the affected hand elevated above the heart for the next 2 - 7 days. Do not lift with or strain the hand. Protect your incisions from the sun for at least 6 months. Other restrictions/instructions: (Work, Exercise, Diet): Medications: Ibuprofen or Tylenol as directed Problems to report to your doctor: -A temperature over 100.4F or 38C -Excessive redness or warmth spreading away from the incision line after the first 48 hours. -Thick, yellow, foul smelling drainage larger than a dime from the incisions or drain site. -Increased pain that is not relieved by your pain medicine. To contact your doctor: -During office hours - Monday through Monday from 8am to 5pm - call [phone] -On weekends or after office hours - call [phone] and ask the piped buttonhole machine operator to page the Plastic Surgeon business continuity strategy director. -The nurses line - Monday through Monday from 8am to 5pm - call [phone]. documented in this encounter Progress Notes * Dorina Lowry RN - 09/12/2019 2:00 PM EDT Plastic Surgery Minor Surgery Worksheet Skin Prep: hibiclens with NS Cautery Unit: MNS2 Grounding Pad Site: right abdomen Settings: Coag 15 Cutting 15 Xylocaine w/epi 1:200,000 Script written for: none documented in this encounter Procedure Notes * Malia Denton MD - 09/12/2019 2:00 PM EDTAssociated Order(s): WOUND REPAIR, INT NECK,HAND,FOOT,GENITALIA Procedure(s): PRO SIMPLE REPAIR F/E/E/N/L/M 5.1CM-7.5CM Pre-Procedure Diagnose(s): Laceration of finger, foreign body presence unspecified, nail damage status unspecified, unspecified finger, unspecified laterality, subsequent encounter Minor Procedure Note Malia Denton MD. Plastic Surgery Procedure: repair laceration L 5th digit Depth: 3 mm Anatomic Location: L 5th digit Pre-op diagnosis: laceration left 5th digit following exploration for high pressure injury Consent: Written from patient after discussion of risks and benefits. I have reviewed the risks, benefits and alternatives to the surgical management including infection, bleeding, recurrencey. All issues were discussed and the patients understanding this wishes to proceed. Physician: Malia Denton M.D. Anesthesia: Local with lidocaine 1% with epi Description: After anesthesia was provided via digital block, the site was prepped and draped in sterile fashion. Using 4-0 nylon suture, the wound edges were re-approximated in simple fashion. At the site of the patient's previous injury, patient was noted to have significant skin slough, so further closure was deferred. The wound was cleansed and dressed with xeroform gauze and a richard wrap. The total length of the incision was approximately 7cm. Tolerated well without complication. Specimens: to path none Complications: none immediate EBL: <5 cc Disposition: Pt. tolerated the procedure well. After the procedure, the patient was discharged home. documented in this encounter Plan of Treatment Not on file documented as of this encounter Procedures Procedure Name Priority Date/Time Associated Diagnosis Comments PRO SIMPLE REPAIR F/E/E/N/L/M 5.1CM-7.5CM Routine 09/12/2019 2:00 PM EDT Laceration of finger, foreign body presence unspecified, nail damage status unspecified, unspecified finger, unspecified laterality, subsequent encounter documented in this encounter Results * PRO SIMPLE REPAIR F/E/E/N/L/M 5.1CM-7.5CM (09/12/2019 2:00 PM EDT) Narrative Malia Denton MD - 09/12/2019 2:00 PM EDT Malia Denton MD ? 09/12/2019 ??4:19 PM Minor Procedure Note Malia Denton MD. Plastic Surgery Procedure: repair laceration L 5th digit Depth: 3 mm Anatomic Location: L 5th digit Pre-op diagnosis: laceration left 5th digit following exploration for high pressure injury Consent: Written from patient after discussion of risks and benefits. I have reviewed the risks, benefits and alternatives to the surgical management including infection, bleeding, recurrencey. All issues were discussed and the patients understanding this wishes to proceed. Physician: Malia Denton M.D. Anesthesia: Local with lidocaine 1% with epi Description: After anesthesia was provided via digital block, the site was prepped and draped in sterile fashion. Using 4-0 nylon suture, the wound edges were re-approximated in simple fashion. At the site of the patient's previous injury, patient was noted to have significant skin slough, so further closure was deferred. The wound was cleansed and dressed with xeroform gauze and a richard wrap. The total length of the incision was approximately 7cm. Tolerated well without complication. Specimens: to path none Complications: none immediate EBL: <5 cc Disposition: Pt. tolerated the procedure well. After the procedure, the patient was discharged home. Malia Denton MD PROCEDURE/MINOR SURG ICAL ORDERABLES documented in this encounter Visit Diagnoses Diagnosis Laceration of finger, foreign body presence unspecified, nail damage status unspecified, unspecified finger, unspecified laterality, subsequent encounter High-pressure injection injury of finger of left hand, subsequent encounter documented in this encounter Care Teams Mule Operator Relationship Specialty Start Date End Date Shyam Crespo MD [address] [place] [address] PCP - General Internal Medicine 09/06/19 documented as of this encounter
--- OUTSIDE RECORDS SUMMARY | 2023-10-30 02:09 | XMS_ITS | Encounter Summary ---
Author Organization [facility] Address [facility] [place] [address] Care Team Providers Care Pit And Auxiliaries Supervisor Name Role Phone Shyam Crespo MD Primary Care Provider [phone] Reason for Visit * Reason Comments Finger Injury * Auth/Cert Specialty Diagnoses / Procedures Referred By Contac t Referred To Contact Diagnoses High-pressure injection injury of finger of left hand FINGER INJURY Procedures ER IPI Admit Referral ID Status Reason Start Date Expiration Date Visits Re quested Visits Authorized [id number] 1 1 Encounter Details Date Type Department Care Team (Late st Contact Info) Description 09/05/2019 11:33 AM EDT - 09/06/2019 1:35 PM EDT Emergency [address] [place] [id number] Malia [place] MD [facility] [place] [address] High-pressure injection injury of finger of left hand, initial encounter (Primary Dx) Discharge Disposition: Home Social History Tobacco Use Types Packs/Day Years Used Date Smoking Tobacco: Never Assessed Sex and Gender Information Value Date Recorded Sex Assigned at Not on file Gender Identity Not on file Sexual Orientation Not on file documented as of this encounter Last Filed Vital Signs Vital Sign Reading Time Taken Comments Blood Pressure 146/100 09/06/2019 8:40 AM EDT Pulse 64 09/05/2019 6:14 PM EDT Temperature 36.7 ??C (98.1 ??F) 09/06/2019 8:40 AM ED T Respiratory Rate 18 09/06/2019 8:40 AM EDT Oxygen Saturation 98% 09/06/2019 8:40 AM EDT Inhaled Oxygen Concentration - - Weight 93 kg (205 lb) 09/05/2019 11:37 AM EDT Height 176.5 cm (5' 9.5) 09/05/2019 5:00 PM EDT Body Mass Index 29.84 09/05/2019 11:37 AM EDT documented in this encounter Discharge Summaries * Lisset Holt, BRICK PITCHER - 09/06/2019 8:26 AM EDT Plastic Surgery [...] for fracture. He was then transferred to [facility] for specialty hand care.??Patient??deniesnumbness, tingling, and weakness [...] -- Blood Pressure BP: (!) 129/93(RN aware, MD aware) BP: (120-129)/(85-93) Respiratory Rate Resp: 15 [...] scheduling, please contact our administrative offices at [phone]. For clinical questions, please call our nurses at [phone]. Both offices are open Monday thru Monday 8a - 5p. With emergencies after hours, call the hospital center machine operator at [phone] and ask for the Plastic Surgery Resident donor relations coordinator. Scheduled Appointments: No future appointments. Outpatient Services/Studies: [...] about scheduling, please contact our administrative officesat [phone] For clinical questions, please call our nurses at [phone] Both offices are open Monday thru Monday 8a - 5p. With emergencies after hours, call the hospital center machine operator at [phone] and ask for the Plastic Surgery Resident donor relations coordinator. General Instructions None Call your doctor if: [...] about scheduling, please contact our administrative officesat [phone] For clinical questions, please call our nurses at [phone] Both offices are open Monday thru Monday 8a - 5p. With emergencies after hours, call the hospital center machine operator at [phone] and ask for the Plastic Surgery Resident donor relations coordinator. documented in this encounter Medications at Time [...] Patient discharged to home with family. Gudelia Hubbard RN Patient Name: Kody Carr Patient Age: 59 y.o. Birthdate: 1960 Admit date: 09/05/2019 Attending Physician: Malia [place] MD * Lisset Holt, BRICK PITCHER - 09/06/2019 7:41 AM EDT Plastic Surgery Inpatient Progress Note (Team Pager #[phone]) Date of surgery: 09/05/19 CC/Procedure(s): Left small finger I&D Surgeon: Bertin Subjective: Patient reports that he has been feeling well. Little pain. He is concerned about return to work and is requesting a note explaining his absence. Objective: BP (!) 129/93 Comment: MANISH awareMD aware Pulse 64 Temp 36.8 ??C (98.2 [...] IV antibiotics. Plastic Surgery Inpatient Team Pager #[phone] Associated attestation - Malia D[place] MD - [...] for fracture. He was then transferred to [facility] for specialty hand care. Patient denies numbness, tingling, and weakness of the hand. No prior injuries or surgeries to the extremity. Right hand dominant. 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 who I accepted in transfer from [facility]. The patient will be evaluated in the Emergency Department for finger high pressure injection injury. The EM team will contact the plastic surgery team. The OSH does not agree to take the patient back in transfer after our evaluation and treatment. Transfer and stabilization prior to transfer were discussed - Td updated, antibiotics given, hand to be elevated. Israel Cartwright MD 09/05/19 0952 documented in this encounter Miscellaneous Notes * Initial Assessments - Lily Rodriguez RN - 09/06/2019 10:21 AM EDT Office [...] Functional Status: SBA w FWW [address] [facility] [address] Supports: spouse Treasure Assessment: Patient with no apparent RNCM/SW needs at this time. No housing, transportation, insurance, resources concerns identified at this time. Supports in place to achieve a safe post-hospital transition. No identified barriers to accessing necessary care and/or follow-up after discharge. Plan: Patient to d/c to home via private car (spouse to drive) when medically ready. concrete gun operator/Glaze Maker will continue to follow patient???s progress and remain available if situation changes for coordination of care, psychosocial support and/or discharge planning. Lily Rodriguez, RN Pager [phone] * Plan of Care - Jeniffer Martinez - 09/06/2019 5:44 AM EDT Problem: Skin [...] Conf Participants patient;nursing * Consult Note - Brittany Wilks [facility] - 09/05/2019 4:05 PM EDT Clinical Pharmacist Note - VancFD Kody Carr [id number] Kody Carr is a 59 y.o. [...] questions you may have. Alternately, during off-hours (9) you may call [phone] to contact a pharmacist. Brittany Wilks RPH * Brief Op Note - Jose Landis MD - 09/05/2019 3:48 PM EDT Brief Operative Note Patient Name: Kody Carr : [id number] MR#: [id number] Case Date: 09/05/2019 Surgeon: Surgeon(s) and Role: [...] [place] MD - 09/05/2019 3:41 PM EDT [facility] Operative Note Patient Name: Kody Carr : [id number] MR#: [id number] Case Date: 09/05/2019 Surgeon: Surgeon(s) and Role: [...] left fifth digit. He was transferred to [facility] for further evaluation. After evaluation we determined [...] for fracture. He was then transferred to [facility] for specialty hand care. Patient denies numbness, tingling, and weakness of the hand. No prior injuries or surgeries to the extremity. 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 Please do not hesitate to page [phone] if you have any questions or concerns. [...] was injected into his finger. Pain currently 4/10. A/o x 4. Skin WPD. Injured finger [...] 3:33 PM EDT Drain Finger Abscess, Complicated ([id number]) 09/05/2019 2:11 PM EDT Left small finger high pressure injury Debridement, Skin, Sub-Q Tissue ([id number]) 09/05/2019 2:11 PM EDT Left small finger high pressure injury documented in this encounter Results * Basic Metabolic Panel (non-fasting) (09/05/2019 5:11 PM EDT) Glucose Lvl 106 65 - 199 mg/dL [facility] Comment:Diabetes: >=200 mg/d L plus symptoms BUN 11 10 - 20 mg/dL [facility] Creatinine 0.86 0.80 - 1.50 mg/dL [facility] Sodium 139 135 - 145 mmol/L [facility] Potassium 4.4 3.5 - 5.0 mmol/L [facility] Comment: Please note: ??Patients with WBC >100,000 may have falsely elevated Potassium levels. ??For accurate Potassium quantification in these patients send serum separator tube (gold top) for subsequent determinations. ??Contact the Clinical Chemistry Laboratory if there are any questions. Chloride 104 98 - 107 mmol/L [facility] CO2 23 22 - 31 mmol/L [facility] Anion Gap 12 5 - 15 mmol/L [facility] Calcium 9.0 8.5 - 10.5 mg/dL [facility] Estimated GFR 94 >=60 mL/min/1. 73 m?? [facility] Comment: The eGFR was calculated using the CKD-EPI equation. As with all creatinine based estimates of kidney function, eGFR values calculated with the CKD-EPI equation are not accurate in patients with acute kidney failure, extremes of body mass or the acutely ill. [email or web address] eGFR 108 >=60 mL/min/1. 73 m?? [facility] Comment: The eGFR was calculated using the CKD-EPI equation. As with all creatinine based estimates of kidney function, eGFR values calculated with the CKD-EPI equation are not accurate in patients with acute kidney failure, extremes of body mass or the acutely ill. [email or web address] Blood specimen (specimen) 09/05/2019 5:11 PM EDT 09/05/2019 5:19 PM EDT Narrative Resulting Agency Comment Spec In Lab Malia D[place] MD CHEMISTRY ORDERABLES [facility] [place] [address] documented in this encounter Visit Diagnoses Diagnosis High-pressure injection injury of finger of left hand, initial encounter- Primary High-pressure injection injury of finger of left hand documented in this encounter Admitting Diagnoses Diagnosis High-pressure [...] Given 09/06/2019 8:36 AM EDT 20 mg ondansetron (ZOFRAN) injection 4 mg 4 mg, [...] Provider: Jeniffer Martinez)0836 (Given - Provider: Gudelia Hubbard RN)2200 (Canceled Entry - Provider: Millie Carson RN - Reason: Order parameters not met) ceFAZolin (Ancef) 2g in dextrose 5% 100 mL (COMPLETED) 2 g, Intravenous, ONCE, 1 dose, On Teresa 09/05/19 at 1233, Administer over 30 Minutes, Indication for (Active or Suspected): Skin/Skin Structure 1233 (Given - Provider: Tuan Chanel, MANISH) citalopram (CeleXA) tablet 20 mg 20 mg, [...] refused) 0900 (Not Given - Provider: Gudelia Hubbard, MANISH - Reason: Patient/family refused) piperacillin-tazobactam (ZOSYN) 3.375 g vial attach to sodium chloride 0.9% 50 mL Mini-Bag Plus (CANCELED) 3.375 g, Intravenous, EVERY 8 HOURS, First dose on Teresa 09/05/19 at 1630, Until Discontinued, Administer over 4 Hours, Warning Vesicant/Irritant Medication Do not administer or Y-site with lactated ringers., Indication for (Active or Suspected): Skin/Skin Structure 1619 (New Bag - Provider: Millie Carson, RN)2019 (Stopped - Provider: Jeniffer Martinez) sodium chloride [...] Routine 0941 (New Bag - Provider: Gudelia Hubbard RN)1056 (Stopped - Provider: Gudelia Hubbard RN) vancomycin 2 g in sodium chloride 0.9% 500 mL (COMPLETED) 2 g, Intravenous, at 250 mL/hr, ONCE, 1 dose, On Teresa 09/05/19 at 2000, Maximum infusion rate is 1 [...] 10 mg, Rectal, DAILY PRN, Starting on Teresa 09/05/19 at 1558, Until Mon09/06/19 at 1536, Constipation, [...] Unit) documented in this encounter Care Teams Pit And Auxiliaries Supervisor Relationship Specialty Start Date End Date Shyam Crespo MD [address] [place] [address] PCP - General Internal Medicine 09/06/19 documented as of this encounter
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
--- OUTSIDE RECORDS SUMMARY | 2023-10-30 02:09 | XMS_ITS | Clinical Summary ---
Author Organization [facility] [place] [address] Care Team Providers Care Electronic Warfare Technician Name Role Phone Shyam Crespo MD Primary Care Provider [phone] Allergies Active Allergy Reactions Criticality Noted Date Comments Diatrizoic Acid CIS - URTICARIA+HIVES Iodinated Contrast Media Iodine And Iodide Containing Products Medications Medication Sig Dispensed Refills Start Date End Date Status citalopram (CeleXA) 20 mg Tablet Take 20 mg by mouth daily. 08/02/2019 Active acetaminophen (Tylenol) 500 mg Tablet Take 1,000 mg by mouth every 6 hours as needed for Pain. Active Active Problems Problem Noted Date Diagnosed Date Surgery follow-up 09/27/2019 Finger laceration 09/12/2019 High-pressure injection injury of finger of left hand 09/05/2019 Anxiety 09/05/2019 Social History Tobacco Use Types Packs/Day Years Used Date Smoking Tobacco: Former Smokeless Tobacco: Never Sex and Gender Information Value Date Recorded Sex Assigned at Not on file Gender Identity Not on file Sexual Orientation Not on file Last Filed Vital Signs Vital Sign Reading [...] Mass Index 29.84 09/05/2019 11:37 AM EDT Plan of Treatment Health Maintenance Due Date Last Done Comments CT Colonography 1960 Colonoscopy 1960 Colorectal Cancer Screening 1960 FIT DNA 1958 FIT 1960 Sigmoidoscopy (10 year) with FIT yearly 1960 Sigmoidoscopy 1960 HIV screen 1976 Hepatitis C Screening 1976 Lipid Screening 1976 Tdap adult 1977 Tetanus vaccine 1977 Zoster vaccine (1 of 2) 2008 Advance Directive 2013 Covid-19 Vaccine (1 - 2022- season) 2022 Pneumoccocal Vaccine: 65+ (1 of 1 - PCV) 07/10/2023 Influenza (Flu) vaccine (1 o f 1 - Influenza standard series) 12/17/2023 Diabetes Screening (HgbA1C or Glucose) Discontinued Procedures Procedure Name Priority Date/Time Associated Diagnosis Comments BASIC METABOLIC PANEL (NON-FASTING) STAT 09/05/2019 5:11 PM EDT from Last 3 Months or Most Recently Relevant to Health Maintenance Results * Basic Metabolic Panel (non-fasting) (09/05/2019 5:11 PM EDT) Glucose Lvl 106 65 - 199 mg/dL [facility] Comment:Diabetes: >=200 mg/d L plus symptoms BUN 11 10 - 20 mg/dL [facility] Creatinine 0.86 0.80 - 1.50 mg/dL [facility] Sodium 139 135 - 145 mmol/L [facility] Potassium 4.4 3.5 - 5.0 mmol/L [facility] Comment: Please note: ??Patients with WBC >100,000 may have falsely elevated Potassium levels. ??For accurate Potassium quantification in these patients send serum separator tube (gold top) for subsequent determinations. ??Contact the Clinical Chemistry Laboratory if there are any questions. Chloride 104 98 - 107 mmol/L [facility] CO2 23 22 - 31 mmol/L [facility] Anion Gap 12 5 - 15 mmol/L [facility] Calcium 9.0 8.5 - 10.5 mg/dL [facility] Estimated GFR 94 >=60 mL/min/1. 73 m?? [facility] Comment: The eGFR was calculated using the CKD-EPI equation. As with all creatinine based estimates of kidney function, eGFR values calculated with the CKD-EPI equation are not accurate in patients with acute kidney failure, extremes of body mass or the acutely ill. [email or web address]/[facility] eGFR 108 >=60 mL/min/1. 73 m?? [facility] Comment: The eGFR was calculated using the CKD-EPI equation. As with all creatinine based estimates of kidney function, eGFR values calculated with the CKD-EPI equation are not accurate in patients with acute kidney failure, extremes of body mass or the acutely ill. http://[employer]/[facility] Blood specimen (specimen) 09/05/2019 5:11 PM EDT 09/05/2019 5:19 PM EDT Narrative Resulting Agency Comment Spec In Lab Malia Denton MD CHEMISTRY ORDERABLES [facility] [place] [address] from Last 3 Months or Most Recently Relevant to Health Maintenance Advance Directives * Full Code (Latest Code Status on File) Date Activated Date Inactivated Comments 09/05/2019 12:27 PM 09/06/2019 3:36 PM Question Answer Comments Does patient have capacity to make decision: Yes Care Teams Electronic Warfare Technician Relationship Specialty Start Date End Date Shyam Crespo MD [address] [place] [address] PCP - General Internal Medicine 09/06/19
--- OUTSIDE RECORDS SUMMARY | 2023-10-30 02:09 | XMS_ITS | Encounter Summary ---
Author Organization [facility] Address [address] [place] [address] Care Team Providers Care Film Casting Operator Name Role Phone Shyam Crespo MD Primary Care Provider [phone] Encounter Details Date Type Department Care Team (Late st Contact Info) Description 08/30/2017 Results Only [facility] [phone] Dionte Trevizo MD [address] [place] [address] [place] [address] Social History Tobacco Use Types Packs/Day Years Used Date Smoking Tobacco: Never Assessed Sex and Gender Information Value Date Recorded Sex Assigned at Not on file Gender Identity Not on file Sexual Orientation Not on file documented as of this encounter Plan of Treatment Not on file documented as of this encounter Procedures Procedure Name Priority Date/Time Associated Diagnosis Comments SURGICAL PATHOLOGY Routine 08/30/2017 9:23 EDT documented in this encounter Results * SURGICAL PATHOLOGY (08/30/2017 9:23 EDT) Pathology Report: SURGICAL PATHOLOGY REPORT Reports generated via electronic interface contain original data; however they are lacking the format of the original report. Caution should be taken when reading/interpret ing unformatted reports. Name: ? KODY CARR ? Accession #: ? [id number] ? : ? 1960 (Age: 57) ??M ? Collect Date: ? 08/30/2017 ? Location: ? [facility] ? Receive Date: ? 08/31/2017 ? Provider: DIONTE TREVIZO MD Copy to: SHYAM CRESPO MD ? Final Pathologic Diagnosis: SOFT TISSUE OF WRIST, RIGHT, VOLAR ASPECT, MASS, EXCISION: - Features consistent with ganglion cyst. Document reviewed and electronically signed by: MO MARIE MD Report ??Date: 09/04/2017 11:27 By the signature above, the attending physician certifies that he/she has personally conducted a gross and/or microscopic examination of the described specimens and rendered or confirmed the above diagnosis. Specimen(s) Received: Rt wrist mass Clinical History: Rt wrist mass volar aspect, tissue surrounding radial artery (R) Gross Description: ? Received in formalin labelled with proper patient identification (initials B, P) and Rt wrist mass are two pieces of park-pink dull, rubbery, cauterized soft tissue (2.6 x 2.1 x 0.6 cm). The specimen is entirely submitted in 1 and 2. YASH Guillory ([facility]) 08/31/2017 10:14 AM End of Report [facility] 08/30/2017 9:23 EDT 08/31/2017 9:23 EDT Dionte Trevizo MD PATHOLOGY ORDERABLES [facility] [address] [place] [address] documented in this encounter Visit Diagnoses Not on filedocumented in this encounter Care Teams Film Casting Operator Relationship Specialty Start Date End Date Shyam Crespo MD [address] [place], [place] [id number] PCP - General 11/21/16 documented as of this encounter
--- OUTSIDE RECORDS SUMMARY | 2023-10-30 02:09 | XMS_ITS | Clinical Summary ---
Author Organization [facility] Address [address] [place] [address] Care Team Providers Care Trimming Department Blocker Name Role Phone Shyam Crespo MD Primary Care Provider [phone] Social History Tobacco Use Types Packs/Day Years Used Date Smoking Tobacco: Never Assessed Interpersonal Safety Answer Date Record ed Physically Hurt Never 11/18/2019 Verbally Threaten Not on file 11/18/2019 Sex and Gender Information Value Date Recorded Sex Assigned at Not on file Gender Identity Not on file Sexual Orientation Not on file Plan of Treatment Health Maintenance Due Date Last Done Comments Hepatitis C Screen 1960 RSV Immunization ( o r 60+ Years) (1 - 1-dose 60+ series) 2018 COVID-19 Vaccine (2022- season) 2022 Fall Risk Screening 07/10/2023 Care Teams Trimming Department Blocker Relationship Specialty Start Date End Date Shyam Crespo MD [address] [place] [address] PCP - General 11/21/16
--- OUTSIDE RECORDS SUMMARY | 2023-10-30 02:09 | XMS_ITS | Encounter Summary ---
Author Organization [facility] Address [address] [place] [address] Care Team Providers Care Narrow Gauge Operator Name Role Phone Unavailable Primary Care Provider Unavailabl e Encounter Details Date Type Department Care Team (Latest Contact Info) Description 11/17/2016 9:55 EDT - 11/17/2016 23:59 EDT Hospital Encounter [address] [address] Unknown, Provider, Discharge Disposition: Home or Self Care Social History Tobacco Use Types Packs/Day Years Used Date Smoking Tobacco: Never Assessed Sex and Gender Information Value Date Recorded Sex Assigned at Not on file Gender Identity Not on file Sexual Orientation Not on file documented as of this encounter Discharge Disposition Disposition Code Departure Means Destination Home or Self [facility] documented in this encounter Plan of Treatment Not on file documented as of this encounter Visit Diagnoses Not on filedocumented in this encounter
--- OUTSIDE RECORDS SUMMARY | 2023-10-30 02:09 | XMS_ITS | Encounter Summary ---
Author Organization [facility] Address [facility] [place] [address] Care Team Providers Care Service Station Operator Name Role Phone Shyam Crespo MD Primary Care Provider [phone] Reason for Visit * Reason Comments Follow Up Surgery suture removal left small finger dos 09/12/19 Encounter Details Date Type Department Care Team (Late st Contact Info) Description 09/27/2019 10:00 AM EDT Office [place] [address] Malia Monroe MD [facility] [place] [address] Laceration of finger, foreign body presence unspecified, nail damage status unspecified, unspecified finger, unspecified laterality, subsequent encounter; Surgery follow-up Social History Tobacco Use Types Packs/Day Years Used Date Smoking Tobacco: Former Smokeless Tobacco: Never Sex and Gender Information Value Date Recorded Sex Assigned at Not on file Gender Identity Not on file Sexual Orientation Not on file documented as of this encounter Progress Notes * Malia Monroe MD - 09/27/2019 10:00 AM EDT Plastic Surgery Post Op Note Malia Monroe MD. Reason for visit: F/U status post procedure Date of surgery: 09/12/19 Procedure(s): repair laceration of L 5th digit Complications: None reported HPI: Patient is unaccompanied for today's visit. He/She is approximately 15d s/p repair laceration of L 5th digit. He reports that his hand has healed very well. He is putting bacitracin on his incision to keep it moist. He stated a few days ago he peeled off some nonviable skin and has seen improvement since that time. He does reports mild swelling, but denies any pain at this time. He does have difficulty bending his 5th digit - he feels this is due to swelling. Examination: There were no vitals taken for this visit. Patient is alert, conversant, comfortable, ambulating Incision: CDI, healing well without evidence of cellulitis or drainage from incision Moderate edema in 5th digit, nontender to palpation. Impression: Kody Carr is a 59 y.o. male who was seen today for follow-up after the above procedure. Please see the operative note for details. He is doing well without complaints. He is healingvery well to date. I am pleased with his results thus far and do not have any concerns for infection. I have recommended that he continues to apply Neosporin/moisturizer to his finger to keep it moist to aid in healing. In regards to the edema, this may be preventing him from bending the finger. I have recommended hand therapy to aid in restoring normal function of the finger. He would like to wait until the edema goes down before proceeding with therapy. I would not recommend returning to workat this time as his job is dependent on using his hands unless he is able to perform duties in which he does not do gripping/lifting with his right hand. We will continue to monitor his progression and will see him via telehealth in two weeks for follow-up and to re-discuss hand therapy. Plan: Follow up: 2 week Telehealth visit. Scheduled. I, Allison Heath, have performed the documentation [...] as of this encounter Visit Diagnoses Diagnosis Laceration of finger, foreign body presence unspecified, nail damage status unspecified, unspecified finger, unspecified laterality, subsequent encounter Surgery follow-up Follow-up examination, following unspecified surgery documented in this encounter Care Teams Service Station Operator Relationship Specialty Start Date End Date Shyam Crespo MD [address] [place] [address] PCP - General Internal Medicine 09/06/19 documented as of this encounter
--- NOTE | 2023-11-01 16:35 | DI.RAD_ITS ---
Exam(s) XR KNEE LT 3V AP,LAT,KAVIN EXAM: XR KNEE LT 3V AP,LAT,KAVIN CLINICAL HISTORY: PAIN LT KNEE, M25.562. TECHNIQUE: 2D digital imaging was performed. Three views. COMPARISON: CR XR KNEE RT 3V AP,LAT,KAVIN from 11/01/2023 FINDINGS: BONES: No acute fracture is present. No bony destructive lesion is seen. JOINTS: Moderate narrowing of the medial femoral tibial joint and periarticular spurring. Mild varus angulation. Lateral femoral tibial joint space is maintained. Mild periarticular spurring. Mild s purring at the articular aspect of the patella. No joint effusion is seen. SOFT TISSUE: Metallic emely. 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
--- NOTE | 2023-11-01 16:35 | DI.RAD_ITS ---
Exam(s) XR KNEE RT 3V AP,LAT,KAVIN EXAM: XR KNEE RT 3V AP,LAT,KAVIN CLINICAL HISTORY: RT KNEE PAIN,M25.551. TECHNIQUE: 2D digital imaging was performed. Three views. COMPARISON: CR XR KNEE LT 3V AP,LAT,KAVIN from 03/08/2021 FINDINGS: BONES: No acute fracture is present. No bony destructive lesion is seen. Intramedullary rods noted i n the femur and tibia. Old fracture deformity of the proximal tibia and mid to distal femur, not ful ly included on the exam. JOINTS: The joint spaces are suboptimally profiled. There is [id number] narrowing of the media l femoral tibial joint.. No joint effusion is seen. SOFT TISSUE: Surgical clips in the soft tissues. IMPRESSION: Old femoral and tibial fractures with intramedullary mary in place. 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 DATA REPOSITORY: RADIATION DOSE DELIVERED:
--- NOTE | 2023-11-01 16:36 | DI.RAD_ITS ---
Exam(s) XR HIP RT COMPLETE AP PELVIS EXAM: XR HIP RT COMPLETE AP PELVIS CLINICAL HISTORY: RT HIP PAIN, M25.551. TECHNIQUE: 2D digital imaging was performed. Two views COMPARISON: No exams were available for comparison FINDINGS: BONES: No acute fracture is present. No bony destructive lesion is seen. Intramedullary mary and scr ews in the right femur. JOINTS: No dislocation present. Moderate narrowing of the right hip joint space and periarticular s purring. Periarticular spurring also noted on the left. The left hip joint space is maintained. Th e SI joints and pubic symphysis are unremarkable. SOFT TISSUE: Normal. IMPRESSION: Hardware in the right femur. Moderate degenerative changes of the right hip. Mild degenerative mott ges of the left hip. DATA REPOSITORY: RADIATION DOSE DELIVERED:
== END ==
PROVIDERS: PCP Family Medicine; Visit Provider Family Medicine
DX: M25.562 Pain in left knee (principal); M17.12 Unilateral primary osteoarthritis, left knee; M25.561 Pain in right knee; M17.11 Unilateral primary osteoarthritis, right knee; M25.551 Pain in right hip; M16.11 Unilateral primary osteoarthritis, right hip; Z87.81 Personal history of (healed) traumatic fracture
CPT/HCPCS: 73562; 73502

== ENCOUNTER 2023-11-21 15:04 | Outpatient (REF) | payer OTHER, SELFPAY ==
[2023-11-21 15:09] LABS: Abs Immature Grans 0.01 10^3/uL (0.0-0.06); Absolute Basophil Count 0.03 10^3/uL (0.0-0.2); Absolute Eosinophil Count 0.16 10^3/uL (0.0-0.7); Absolute Monocyte Count 0.39 10^3/uL (0.1-0.8); Absolute Neutrophil Count 3.76 10^3/uL (1.2-6.7); Basophils % 0.5 %; Eosinophils % 2.6 %; HCT 41.6 % (40.0-50.0); HGB 14.6 g/dL (13.5-17.5); Immature Grans % 0.2 %; Lymphocytes % 30.4 %; MCH 32.4 pg (27.0-33.0); MCHC 35.1 % (32.0-36.0); MCV 92 fL (80-95); MPV 11.1 fL (8.0-11.0); Monocytes % 6.2 %; Neutrophils % 60.1 %; Platelet Count 206 10^3/uL (130-400); RBC 4.51 10^6/uL (4.36-5.78); RDW 12.4 % (11.8-14.1); RDW-SD 42.3 fL; WBC 6.25 10^3/uL (4.4-10.8)
[2023-11-21 15:25] LABS: Anion Gap 10.4 mmol/L (3-11); BUN 9 mg/dL (7-18); CO2 24.6 mmol/L (21.0-32.0); CREATININE 0.9 mg/dL (0.70-1.30); Chloride 106 mmol/L (98-107); Estimated GFR 94.78 (mL/min/1.73m2); Glucose 95 mg/dL (74-106); Potassium 4.1 mmol/L (3.5-5.1); Sodium 141 mmol/L (136-145)
== END 2023-11-21 15:05 | disposition home or self-care (01) ==
LOC: NCHCN 15:04
PROVIDERS: PCP Family Medicine; Visit Provider Family Medicine
DX: I10 Essential (primary) hypertension (principal)
CPT/HCPCS: 80048; 85025

== ENCOUNTER 2024-10-23 16:19 | Outpatient (REF) | payer OTHER, SELFPAY ==
[2024-10-23 16:37] LABS: Abs Immature Grans 0.02 10^3/uL (0.0-0.06); HCT 39.8 % (40.0-50.0); HGB 13.4 g/dL (13.5-17.5); Immature Grans % 0.3 %; MCH 31.7 pg (27.0-33.0); MCHC 33.7 % (32.0-36.0); MCV 94 fL (80-95); MPV 11.1 fL (8.0-11.0); Platelet Count 190 10^3/uL (130-400); RBC 4.23 10^6/uL (4.36-5.78); RDW 12.3 % (11.8-14.1); RDW-SD 42.8 fL; WBC 7.43 10^3/uL (4.4-10.8)
[2024-10-23 17:00] LABS: ALT 39 U/L (16-63); AST 22 U/L (15-37); Albumin 4.2 g/dL (3.4-5.0); Alkaline Phosphatase 100 U/L (46-116); Anion Gap 5.7 mmol/L (3-11); BUN 14 mg/dL (7-18); Bilirubin, Total 0.5 mg/dL (0.2-1.0); CO2 29.3 mmol/L (21.0-32.0); Calcium 9.5 mg/dL (8.5-10.1); Calculated LDL 123 mg/dL (<100); Chloride 106 mmol/L (98-107); Cholesterol 209 mg/dL (<200); Estimated GFR 94.19 (mL/min/1.73m2); Glucose 95 mg/dL (74-106); HDL Cholesterol 52 mg/dL (>or=40); Potassium 4.2 mmol/L (3.5-5.1); Sodium 141 mmol/L (136-145); Total Protein 7.2 g/dL (6.4-8.2); Triglyceride 171 mg/dL (<150)
== END 2024-10-23 16:20 | disposition home or self-care (01) ==
LOC: NCHCN 16:19
PROVIDERS: PCP Family Medicine; Visit Provider Family Medicine
DX: Z00.00 Encounter for general adult medical examination without abnormal findings (principal); I10 Essential (primary) hypertension
CPT/HCPCS: 80053; 80061; 85025